=== PATIENT | male | born 1980 | race Caucasian/White ===

== ENCOUNTER 2023-11-18 17:30 | Inpatient (IN) ==
--- NOTE | 2023-11-18 17:53 | ED Physician Documentation ---
History of Present Illness - Stated complaint Stated Complaint: DIZZY/SOA - Chief complaint Chief Complaint: General - History obtained from History obtained from: Patient - History of Present Illness Pain level max: 0 Pain level now: 0 - Additonal information Additional information: Patient is a 43-year-old male who presents to the emergency department lightheadedness and dizziness ongoing for several months. He states he occasionally feels short of air as well. He states that he originally got sick back in July of this year. Cough and congestion. He states since that time he has felt tired and fatigues easily. Worse with standing, worse with walking. No chest pain. Does not smoke. Does not use alcohol. Has been taking Motrin. No blood in the stool that he has noticed. Has not had a colonoscopy. Does not take any medications at home. Is otherwise healthy. He states that when he got home from work today his mother noticed that he looked pale. Patient states that he does take Motrin on a regular basis. He states that he had been having discomfort from "indigestion". 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 Has not had a blood transfusion in the past or had anemia in the past. Review of Systems Constitutional: denies: Fever, Chills Nose: denies: Rhinorrhea / runny nose, Congestion Respiratory: denies: Cough GI: denies: Vomiting, Diarrhea Skin: denies: Rash Musculoskeletal: denies: Neck pain, Back pain Neurologic: denies: Headache PD PAST MEDICAL HISTORY - Past Medical History Past Medical History: No - Past Surgical History Past Surgical History: No - Present Medications Home Medications: Ambulatory Orders Medication Instructions Recorded Confirmed No Known Home Medications 11/18/23 11/18/23 - Allergies Allergies/Adverse Reactions: Allergies Allergy/AdvReac Type Severity Reaction Status Date / Time No Known Drug Allergies Allergy Verified 11/18/23 18:20 - Living Situation Living Situation: reports: With family Living Arrangement: reports: At home - Social History Does the pt smoke?: No Does the pt drink ETOH?: No Does the pt have substance abuse?: No - Family History Family history: reports: Non contributory PD ED PE NORMAL - Vitals Vital signs reviewed: Yes - General General: Alert and oriented X 3, No acute distress, Other (Pale appearing) - HEENT HEENT: PERRL, Moist mucous membranes, Other (Pallor to the inner lower eyelids) - Neck Neck: Supple, no meningeal sign - Cardiac Cardiac: RRR, Strong equal pulses - Respiratory Respiratory: No respiratory distress, Clear bilaterally - Abdomen Abdomen: Soft, Non tender, Non distended - Back Back: No CVA TTP, No spinal TTP - Derm Derm: Warm and dry - Extremities Extremities: No edema, No calf tenderness / cord - Neuro Neuro: Alert and oriented X 3 - Psych Psych: Normal mood, Normal affect Results - Vitals Vitals: Vital Signs - 24 hr 11/18/23 11/18/23 11/18/23 17:40 17:53 18:27 Temperature 37.5 C Heart Rate 107 H 102 H 96 Heart Rate [ Apical] Respiratory 16 14 Rate Blood Pressure 155/79 H 159/92 H 126/57 L Blood Pressure [Right Brachial artery] O2 Saturation 100 98 97 If not protocol : Oxygen Flow, liters/minute 11/18/23 11/18/23 18:30 19:06 Temperature 37.4 C Heart Rate 95 Heart Rate [ 91 Apical] Respiratory 17 20 Rate Blood Pressure 126/57 L Blood Pressure 123/61 [Right Brachial artery] O2 Saturation 90 L 100 If not protocol 0 : Oxygen Flow, liters/minute Oxygen O2 Source Room air - EKG (time done) 1751 EKG releavant findings:: EKG personally interpreted by author of this note. Relevant findings are: Rate: Rate (enter#) (100) Rhythm: Sinus tachycardia [place]: Normal Intervals: Normal ND QRS: Normal Ischemia: Other (Mild ST depression, nonspecific V3 through V6.) - Labs Labs: Laboratory Tests 11/18/23 11/18/23 11/18/23 18:00 18:00 18:00 WBC 5.3 RBC 2.00 L Hgb 3.1 L* Hct 12.5 L* MCV 62.5 L MCH 15.5 L MCHC 24.8 L RDW 18.6 H Plt Count 310 MPV 11.2 Neut # (Auto) 3.4 Lymph # (Auto) 1.5 [place] # (Auto) 0.3 Eos # (Auto) 0.2 Baso # (Auto) 0.0 Absolute Nucleated RBC 0.00 Nucleated RBC % 0.0 Manual Slide Review Indicated Platelet Estimate NORMAL (130-450,000) Platelet Morphology 1+ LARGE PLATELETS RBC Morph Micro Appear 1+ TEARDROP CELLS PT 13.0 H INR 1.2 APTT 31.4 Sodium Potassium Chloride Carbon Dioxide Anion Gap BUN Creatinine Estimated GFR (MDRD) Glucose Calcium Iron TIBC % Saturation Transferrin Total Bilirubin AST ALT Alkaline Phosphatase Total Protein Albumin Globulin Albumin/Globulin Ratio Lipase Ethyl Alcohol Blood Type O POSITIVE Blood Type Recheck Antibody Screen NEGATIVE Crossmatch IS Only See Detail 11/18/23 11/18/23 18:00 18:25 WBC RBC Hgb Hct MCV MCH MCHC RDW Plt Count MPV Neut # (Auto) Lymph # (Auto) [place] # (Auto) Eos # (Auto) Baso # (Auto) Absolute Nucleated RBC Nucleated RBC % Manual Slide Review Platelet Estimate Platelet Morphology RBC Morph Micro Appear PT INR APTT Sodium 136 Potassium 3.7 Chloride 107 Carbon Dioxide 22 Anion Gap 7.0 BUN 21 H Creatinine 1.2 Estimated GFR (MDRD) 65 L Glucose 105 H Calcium 9.2 Iron < 10 L TIBC 503 H % Saturation TNP Transferrin 359 Total Bilirubin 0.4 AST 8 L ALT 8 L Alkaline Phosphatase 42 Total Protein 6.0 L Albumin 3.9 Globulin 2.1 Albumin/Globulin Ratio 1.9 Lipase 63 Ethyl Alcohol < 10.0 Blood Type Blood Type Recheck O POSITIVE Antibody Screen Crossmatch IS Only PD Medical Decision Making - ED course Complexity details: reviewed results, re-evaluated patient, considered differential, d/w patient, d/w content management consultant ED course: 43-year-old male with significant anemia, hemoglobin of 3.1. Had been having epigastric abdominal discomfort intermittently over the past several months, none now. He has been taking a significant amount of Motrin for this. Likely causing gastritis/ulcer and a slow bleed. Iron level is less than 10. Blood transfusion was ordered and started. Protonix was given as well. Discussed the case with Dr. Paniagua, general surgery who will consult on the patient in the morning and plan for endoscopy. Discussed the case with the hospitalist, Dr. Diehl who accepts. This document was made in part using voice recognition software. While efforts are made to proofread this document, sound alike and grammatical errors may occur. Departure - Departure Disposition: [facility] DC/Xfer Clinical Impression: Anemia Qualifiers: Anemia type: iron deficiency Iron deficiency anemia type: chronic blood loss Qualified Code(s): D50.0 - Iron deficiency anemia secondary to blood loss (chronic) Iron deficiency anemia Qualifiers: Iron deficiency anemia type: unspecified iron deficiency Qualified Code(s): D50.9 - Iron deficiency anemia, unspecified GERD (gastroesophageal reflux disease) Qualifiers: Esophagitis presence: esophagitis presence not specified Qualified Code(s): K21.9 - Gastro-esophageal reflux disease without esophagitis Condition: Stable Discharge Date/Time: 11/18/23 19:45
[2023-11-18 18:20] LABS: BASOPHILS % (AUTO) 0.2 %; EOSINOPHILS # (AUTO) 0.2 10^3/uL (0.0-0.7); EOSINOPHILS % (AUTO) 2.8 %; LYMPHOCYTES # (AUTO) 1.5 10^3/uL (1.5-3.5); LYMPHOCYTES % (AUTO) 27.2 %; MEAN CORPUSCULAR HEMOGLOBIN 15.5 pg (27.0-31.0); MEAN CORPUSCULAR HGB CONC 24.8 g/dL (32.0-36.0); MEAN CORPUSCULAR VOLUME 62.5 fL (80.0-94.0); MEAN PLATELET VOLUME 11.2 fL (7.4-11.4); MONOCYTES # (AUTO) 0.3 10^3/uL (0.0-1.0); MONOCYTES % (AUTO) 5.1 %; NEUTROPHILS # (AUTO) 3.4 10^3/uL (1.5-6.6); NEUTROPHILS % (AUTO) 63.8 %; PLT - PLATELET COUNT 310 10^3/uL (130-450); RED CELL DISTRIBUTION WIDTH 18.6 % (12.0-15.0); WHITE BLOOD COUNT 5.3 x10^3/uL (4.8-10.8)
[2023-11-18 18:21] LABS: PARTIAL THROMBOPLASTIN TIME 31.4 secs (24.9-33.3)
[2023-11-18 18:24] LABS: ALBUMIN 3.9 g/dL (3.2-5.5); ALBUMIN/GLOBULIN RATIO 1.9 (1.0-2.2); ALKALINE PHOSPHATASE 42 IU/L (42-121); ALT ALANINE AMINOTRANSFERASE 8 IU/L (10-60); AST ASPARTATE AMINOTRANSFERASE 8 IU/L (10-42); BILIRUBIN,TOTAL 0.4 mg/dL (0.2-1.0); BUN - BLOOD UREA NITROGEN 21 mg/dL (6-20); CALCIUM 9.2 mg/dL (8.5-10.3); CARBON DIOXIDE - CO2 22 mmol/L (21-32); CHLORIDE 107 mmol/L (101-111); CREATININE 1.2 mg/dL (0.6-1.3); ETOH - ETHANOL < 10.0 mg/dL; GFR - MDRD 65 (>89); GLUCOSE 105 mg/dL (74-104); IRON < 10 ug/dL (50-212); LIPASE 63 U/L (11-82); POTASSIUM 3.7 mmol/L (3.5-4.5); SODIUM 136 mmol/L (135-145); TOTAL IRON BINDING CAPACITY 503 ug/dL (250-450); TRANSFERRIN 359 mg/dL (203-362)
[2023-11-18 18:25] LABS: INR 1.2 (0.8-1.2)
[2023-11-18 18:29] LABS: HGB - HEMOGLOBIN 3.1 g/dL (14.0-18.0)
[2023-11-18 18:30] LABS: HCT - HEMATOCRIT 12.5 % (42.0-52.0); SLIDE REVIEW? Indicated
[2023-11-18 18:42] LABS: PLATELET ESTIMATE, MANUAL NORMAL (130-450,000) (NORMAL); PLATELET MORPHOLOGY 1+ LARGE PLATELETS (NORMAL)
[2023-11-18] MEDS: PANTOPRAZOLE 40 MG VIAL IVP STA (18:56)
[2023-11-18] MEDS ORDERED: ACETAMINOPHEN 325 MG TABLET PO PRN (19:11)
[2023-11-18] MEDS ORDERED: ONDANSETRON 4 MG/2 ML VIAL IVP PRN (19:11)
[2023-11-18] MEDS ORDERED: SODIUM CHLORIDE FLUSH 0.9% 10 ML SYRINGE IVP PRN (19:11)
--- NOTE | 2023-11-18 19:38 | HISTORY & PHYSICAL EXAMINATION ---
Chief Complaint - Chief Complaint Chief Complaint: fatigue. History of Present Illness - Admitted From Admitted From:: Home/ED - History Obtained From History obtained from: patient/ED physician Exam Limitations: none - History of Present Illness HPI Comment/Other: MR. Diaz is a pleasant 43yoM that presented to the ED for evaluation of fatigue. He explained that he first noticed symptoms of mild fatigue a few months prior. This was associated with exertional dyspnea and occasional dizziness. He denied any chest pain. he did have some mild epigastric pain that was not different from his usual indigestion/GERD pain. Over the past several weeks his symptoms have worsened. In the ED workup demonstrated a hemoglobin of 3. Adyt explained that he had not seen any blood in his urine or stool. He stated that he does not have a history of anemia.He admitted to taking NSAIDS regularly for muscle pain. During my face to face, patient was resting comfortably in no distress. Vitals were stable. Patient will be admitted for further GI evaluation, surgery consultation,and blood transfusion. Plan of care was discussed, including the usage of tele-medicine for the this visit and patient provided verbal consent. Real time tele-health tools were utilized during this visit including telephone and live-video. History - Past Medical History GI: reports: GERD - Family & Social History Living arrangement: At home Living Situation: With family Meds/Allgy - Home Medications Home Medications: Ambulatory Orders Medication Instructions Recorded Confirmed No Known Home Medications 11/18/23 11/18/23 - Allergies Allergies/Adverse Reactions: Allergies Allergy/AdvReac Type Severity Reaction Status Date / Time No Known Drug Allergies Allergy Verified 11/18/23 18:20 Review of Systems - Constitutional Constitutional: reports: Fatigue, Weakness - Cardiovascular Cariovascular: reports: Lightheadedness, Exertional dyspnea, Decr. exercise tolerance. denies: Palpitations, Chest pain - Gastrointestinal Gastrointestinal: reports: Abdominal pain. denies: Change in bowel habits, Rectal bleeding, Black stools, Bloody stools, Coffee grounds emesis - Genitourinary Genitourinary: reports: Frequency, Nocturia - All Other Systems All Other Systems: reports: Reviewed and negative Exam - Vital Signs Reviewed Vital Signs: Yes Vital Signs: Vital Signs x48h Temp Pulse Pulse Resp BP BP Pulse Ox 11/18/23 19:21 36.9 C 91 21 125/64 100 11/18/23 19:06 37.4 C 91 20 123/61 100 11/18/23 18:30 95 17 126/57 L 90 L 11/18/23 18:27 96 14 126/57 L 97 11/18/23 17:53 102 H 159/92 H 98 11/18/23 17:40 37.5 C 107 H 16 155/79 H 100 O2 Flow Rate 11/18/23 19:21 0 11/18/23 19:06 0 11/18/23 18:30 11/18/23 18:27 11/18/23 17:53 11/18/23 17:40 - Physical Exam General Appearance: positive: No acute distress, Alert Respiratory: positive: No respiratory distress. negative: Chest non-tender, Wheezes Cardiovascular: positive: Regular rate & rhythm, No murmur, No gallop Abdomen: positive: Non-tender, No organomegaly, Nml bowel sounds, No distention Extremities: positive: Non-tender, Full ROM, Nml appearance Neurologic/Psychiatric: positive: Oriented x3, Mood/affect nml Comments/Other: Evaluation via tele-medicine: Physical examination as recorded is based on patient reported information or obtained through peripheral. Conclusion/Plan - Problem List (1) Anemia Conclusion/Plan: chronic blood loss, suspected gastric ulcer vs esophagititis due to NSAID usage -type and screen, transfuse blood: 3 units PRBC pending transfusion -monitor vitals closely with continous telemetry, serial BP and temperature monitoring -iron studies reviewed Qualifiers: Anemia type: iron deficiency Iron deficiency anemia type: chronic blood loss Qualified Code(s): D50.0 - Iron deficiency anemia secondary to blood loss (chronic) (2) GERD (gastroesophageal reflux disease) Conclusion/Plan: -protonix IV continued -GI evlaution: EGD,colonoscopy pending - Lab Results Fish Bones: 11/18/23 18:00 11/18/23 18:00 Core Measures - Anticipated LOS I expect patient to be DC'd or transferred within 96 hours.: Yes Telemedicine Consult Details - Provider Location & Consult Time Telemedicine consultation conducted via videoconferencing?: Yes
[2023-11-19] MEDS ORDERED: SODIUM CHLORIDE 0.9% 500 ML IV ONE ×2 (00:15→05:31)
[2023-11-19] MEDS: SODIUM CHLORIDE FLUSH 0.9% 10 ML SYRINGE IVP SCH (00:38)
[2023-11-19 04:55] LABS: MEAN CORPUSCULAR HEMOGLOBIN 21.3 pg (27.0-31.0); MEAN CORPUSCULAR HGB CONC 29.2 g/dL (32.0-36.0); MEAN PLATELET VOLUME 11.2 fL (7.4-11.4); RED BLOOD COUNT 2.67 10^6/uL (4.70-6.10); RED CELL DISTRIBUTION WIDTH 26.2 % (12.0-15.0); WHITE BLOOD COUNT 6.3 x10^3/uL (4.8-10.8)
[2023-11-19 05:01] LABS: HCT - HEMATOCRIT 19.5 % (42.0-52.0); HGB - HEMOGLOBIN 5.7 g/dL (14.0-18.0)
[2023-11-19 05:10] LABS: CALCIUM 8.4 mg/dL (8.5-10.3); CREATININE 1.1 mg/dL (0.6-1.3); POTASSIUM 3.7 mmol/L (3.5-4.5)
[2023-11-19] MEDS ORDERED: FUROSEMIDE 20 MG/2 ML VIAL IVP PRN (05:15)
[2023-11-19] MEDS: PANTOPRAZOLE 40 MG VIAL IVP SCH (09:13)
--- NOTE | 2023-11-19 10:33 | ANESTHESIA ---
Pre-Anesthesia VS, & Labs - Diagnosis GI BLEED - Procedure EGD Vital Signs: Temp Pulse Resp BP Pulse Ox O2 Flow Rate 37.1 C 84 20 144/89 H 97 0 11/19/23 08:38 11/19/23 08:38 11/19/23 08:38 11/19/23 08:38 11/19/23 08:38 11/18/23 20:35 Height: 6 ft 1 in Weight (kg): 103.419 kg Body Mass Index: 30.0 BMI Classification: Obese - NPO >8 hours - Lab Results Current Lab Results: Laboratory Tests 11/19/23 09:31: Hgb 6.7 L* 11/19/23 04:13: Sodium 136, Potassium 3.7, Chloride 110, Carbon Dioxide 21, Anion Gap 5.0 L, BUN 16, Creatinine 1.1, Estimated GFR (MDRD) 72 L, Glucose 93, Calcium 8.4 L 11/19/23 04:13: WBC 6.3, RBC 2.67 L, Hgb 5.7 L*, Hct 19.5 L*, MCV 73.0 L, MCH 21.3 L, MCHC 29.2 L, RDW 26.2 H, Plt Count 272, MPV 11.2 11/18/23 20:28: POC Whole Bld Glucose 94 11/18/23 18:25: Blood Type Recheck O POSITIVE 11/18/23 18:00: Sodium 136, Potassium 3.7, Chloride 107, Carbon Dioxide 22, Anion Gap 7.0, BUN 21 H, Creatinine 1.2, Estimated GFR (MDRD) 65 L, Glucose 105 H, Calcium 9.2, Iron < 10 L, TIBC 503 H, % Saturation TNP, Transferrin 359, Total Bilirubin 0.4, AST 8 L, ALT 8 L, Alkaline Phosphatase 42, Total Protein 6.0 L, Albumin 3.9, Globulin 2.1, Albumin/Globulin Ratio 1.9, Lipase 63, Ethyl Alcohol < 10.0 11/18/23 18:00: PT 13.0 H, INR 1.2, APTT 31.4 11/18/23 18:00: WBC 5.3, RBC 2.00 L, Hgb 3.1 L*, Hct 12.5 L*, MCV 62.5 L, MCH 15.5 L, MCHC 24.8 L, RDW 18.6 H, Plt Count 310, MPV 11.2, Neut # (Auto) 3.4, Lymph # (Auto) 1.5, [place] # (Auto) 0.3, Eos # (Auto) 0.2, Baso # (Auto) 0.0, Absolute Nucleated RBC 0.00, Nucleated RBC % 0.0, Manual Slide Review Indicated, Platelet Estimate NORMAL (130-450,000), Platelet Morphology 1+ LARGE PLATELETS, RBC Morph Micro Appear 1+ TEARDROP CELLS 11/18/23 18:00: Blood Type O POSITIVE, Antibody Screen NEGATIVE, Crossmatch IS Only See Detail Lab results reviewed: Yes Fish Bones: 11/19/23 09:31 11/19/23 04:13 Home Medications and Allergies Home Medications: Ambulatory Orders No Known Home Medications 11/18/23 Active Medications Acetaminophen (Acetaminophen 325 Mg Tablet) 650 mg PO Q4HR PRN PRN Reason: Pain 1 to 4, or Fever Ondansetron HCl (Ondansetron 4 Mg/2 Ml Vial) 4 mg IVP Q6HR PRN PRN Reason: Nausea / Vomiting Pantoprazole Sodium (Pantoprazole 40 Mg Vial) 40 mg IVP QDAC [facility] Last Admin: 11/19/23 09:13 Dose: 40 mg Sodium Chloride (Sodium Chloride Flush 0.9% 10 Ml Syringe) 10 ml IVP PRN PRN PRN Reason: NEEDED PER PROVIDER ORDERS Sodium Chloride (Sodium Chloride Flush 0.9% 10 Ml Syringe) 10 ml IVP 0100,0900,1700 [facility] Last Admin: 11/19/23 09:13 Dose: 10 ml No Known Home Medications 11/18/23 Allergies/Adverse Reactions: Allergies Allergy/AdvReac Type Severity Reaction Status Date / Time No Known Drug Allergies Allergy Verified 11/18/23 18:20 Anes History & Medical History - Anesthetic History Anesthesia Complications: reports: No previous complications Family history of Anesthesia Complications: Denies - Medical History Cardiovascular: reports: None (NO CP; HAD MILD ST ELEVATION ON ARRIVAL W HGB OF 3.1) Pulmonary: reports: Shortness of breath Gastrointestinal: reports: GERD Urinary: reports: Frequency Neuro: reports: None Musculoskeletal: reports: None, Osteoporosis Endocrine/Autoimmune: reports: None Blood Disorders: reports: None Skin: reports: None Smoking Status: Former smoker Psychosocial: reports: No issues indicated Results - EKG Results EKG Comparison: Reviewed EKG Exam General: Alert, Oriented x3 Dental: WNL Mouth Openin Fingerbreadth Neck Mobility: Normal Mallampati classification: II Thyromental Distance: 4-6 cm Respiratory: Lungs clear Cardiovascular: Regular rate Plan Anesthesia Type: Total IV Consent for Procedure(s) Verified and Reviewed: Yes Code Status: Attempt Resuscitation ASA classification: 2-Mild systemic disease Is this case an emergency?: No
--- NOTE | 2023-11-19 11:33 | PROVIDER PROGRESS NOTE ---
Subjective - Prog Note Date Prog Note Date: 11/19/23 Prog Note Time: 10:57 - Subjective Pt reports feeling: Improved Subjective: Feels much better this morning. The nurses state that his color looks better. He states that he came into the hospital when his fatigue turned to exhaustion. It was at this point his hemoglobin was 3. Current Medications - Current Medications Current Medications: Medications Acetaminophen (Acetaminophen 325 Mg Tablet) 650 mg PO Q4HR PRN PRN Reason: Pain 1 to 4, or Fever Ondansetron HCl (Ondansetron 4 Mg/2 Ml Vial) 4 mg IVP Q6HR PRN PRN Reason: Nausea / Vomiting Pantoprazole Sodium (Pantoprazole 40 Mg Vial) 40 mg IVP QDAC [facility] Last Admin: 11/19/23 09:13 Dose: 40 mg Has recieved 4 units of PRBCs since admit. Objective - Vital Signs/Intake & Output Vital Signs: Vital Signs x48h Temp Pulse Pulse Pulse Resp BP Pulse Ox 11/19/23 08:38 37.1 C 84 20 144/89 H 97 11/19/23 07:26 36.6 C 78 18 145/89 H 97 11/19/23 06:15 37 C 77 20 146/82 H 95 11/19/23 05:57 36.7 C 78 20 134/83 H 96 11/19/23 04:22 37.3 C 84 14 133/83 H 97 11/19/23 03:08 36.8 C 83 18 139/82 H 94 Intake & Output: Intake & Output 11/16/23 11/17/23 11/18/23 11/19/23 23:59 23:59 23:59 23:59 Intake Total 300 1077 Output Total 250 1050 Balance 50 27 - Objective General Appearance: positive: No acute distress ENT: positive: ENT inspection nml Neck: positive: Nml inspection Respiratory: positive: Chest non-tender, No respiratory distress, Breath sounds nml Cardiovascular: positive: Regular rate & rhythm Abdomen: positive: Non-tender, No distention Back: positive: Nml inspection Skin: positive: Color nml Extremities: positive: Non-tender, No pedal edema Neurologic/Psychiatric: positive: Oriented x3 - Lab Results Fish Bones: 11/19/23 09:31 11/19/23 04:13 Other Labs: Lab Results x24hrs 11/19/23 11/19/23 11/19/23 Range/Units 09:31 04:13 04:13 WBC 6.3 (4.8-10.8) x10^3/uL RBC 2.67 L (4.70-6.10) 10^6/uL Hgb 6.7 L* 5.7 L* (14.0-18.0) g/dL Hct 19.5 L* (42.0-52.0) % MCV 73.0 L (80.0-94.0) fL MCH 21.3 L (27.0-31.0) pg MCHC 29.2 L (32.0-36.0) g/dL RDW 26.2 H (12.0-15.0) % Plt Count 272 (130-450) 10^3/uL MPV 11.2 (7.4-11.4) fL Neut # (Auto) (1.5-6.6) 10^3/uL Lymph # (Auto) (1.5-3.5) 10^3/uL [place] # (Auto) (0.0-1.0) 10^3/uL Eos # (Auto) (0.0-0.7) 10^3/uL Baso # (Auto) (0.0-0.1) 10^3/uL Absolute Nucleated RBC x10^3/uL Nucleated RBC % /100WBC Manual Slide Review Platelet Estimate (NORMAL) Platelet Morphology (NORMAL) RBC Morph Micro Appear (NORMAL) PT (9.9-12.6) secs INR (0.8-1.2) APTT (24.9-33.3) secs Sodium 136 (135-145) mmol/L Potassium 3.7 (3.5-4.5) mmol/L Chloride 110 (101-111) mmol/L Carbon Dioxide 21 (21-32) mmol/L Anion Gap 5.0 L (6-13) BUN 16 (6-20) mg/dL Creatinine 1.1 (0.6-1.3) mg/dL Estimated GFR (MDRD) 72 L (>89) Glucose 93 (74-104) mg/dL POC Whole Bld Glucose (70 - 100) mg/dL Calcium 8.4 L (8.5-10.3) mg/dL Iron (50-212) ug/dL TIBC (250-450) ug/dL % Saturation Transferrin (203-362) mg/dL Total Bilirubin (0.2-1.0) mg/dL AST (10-42) IU/L ALT (10-60) IU/L Alkaline Phosphatase (42-121) IU/L Total Protein (6.4-8.9) g/dL Albumin (3.2-5.5) g/dL Globulin (2.1-4.2) g/dL Albumin/Globulin Ratio (1.0-2.2) Lipase (11-82) U/L Ethyl Alcohol mg/dL Blood Type Blood Type Recheck Antibody Screen Crossmatch IS Only 11/18/23 11/18/23 11/18/23 Range/Units 20:28 18:25 18:00 WBC (4.8-10.8) x10^3/uL RBC (4.70-6.10) 10^6/uL Hgb (14.0-18.0) g/dL Hct (42.0-52.0) % MCV (80.0-94.0) fL MCH (27.0-31.0) pg MCHC (32.0-36.0) g/dL RDW (12.0-15.0) % Plt Count (130-450) 10^3/uL MPV (7.4-11.4) fL Neut # (Auto) (1.5-6.6) 10^3/uL Lymph # (Auto) (1.5-3.5) 10^3/uL [place] # (Auto) (0.0-1.0) 10^3/uL Eos # (Auto) (0.0-0.7) 10^3/uL Baso # (Auto) (0.0-0.1) 10^3/uL Absolute Nucleated RBC x10^3/uL Nucleated RBC % /100WBC Manual Slide Review Platelet Estimate (NORMAL) Platelet Morphology (NORMAL) RBC Morph Micro Appear (NORMAL) PT (9.9-12.6) secs INR (0.8-1.2) APTT (24.9-33.3) secs Sodium 136 (135-145) mmol/L Potassium 3.7 (3.5-4.5) mmol/L Chloride 107 (101-111) mmol/L Carbon Dioxide 22 (21-32) mmol/L Anion Gap 7.0 (6-13) BUN 21 H (6-20) mg/dL Creatinine 1.2 (0.6-1.3) mg/dL Estimated GFR (MDRD) 65 L (>89) Glucose 105 H (74-104) mg/dL POC Whole Bld Glucose 94 (70 - 100) mg/dL Calcium 9.2 (8.5-10.3) mg/dL Iron < 10 L (50-212) ug/dL TIBC 503 H (250-450) ug/dL % Saturation TNP Transferrin 359 (203-362) mg/dL Total Bilirubin 0.4 (0.2-1.0) mg/dL AST 8 L (10-42) IU/L ALT 8 L (10-60) IU/L Alkaline Phosphatase 42 (42-121) IU/L Total Protein 6.0 L (6.4-8.9) g/dL Albumin 3.9 (3.2-5.5) g/dL Globulin 2.1 (2.1-4.2) g/dL Albumin/Globulin Ratio 1.9 (1.0-2.2) Lipase 63 (11-82) U/L Ethyl Alcohol < 10.0 mg/dL Blood Type Blood Type Recheck O POSITIVE Antibody Screen Crossmatch IS Only 11/18/23 11/18/23 11/18/23 Range/Units 18:00 18:00 18:00 WBC 5.3 (4.8-10.8) x10^3/uL RBC 2.00 L (4.70-6.10) 10^6/uL Hgb 3.1 L* (14.0-18.0) g/dL Hct 12.5 L* (42.0-52.0) % MCV 62.5 L (80.0-94.0) fL MCH 15.5 L (27.0-31.0) pg MCHC 24.8 L (32.0-36.0) g/dL RDW 18.6 H (12.0-15.0) % Plt Count 310 (130-450) 10^3/uL MPV 11.2 (7.4-11.4) fL Neut # (Auto) 3.4 (1.5-6.6) 10^3/uL Lymph # (Auto) 1.5 (1.5-3.5) 10^3/uL [place] # (Auto) 0.3 (0.0-1.0) 10^3/uL Eos # (Auto) 0.2 (0.0-0.7) 10^3/uL Baso # (Auto) 0.0 (0.0-0.1) 10^3/uL Absolute Nucleated RBC 0.00 x10^3/uL Nucleated RBC % 0.0 /100WBC Manual Slide Review Indicated Platelet Estimate NORMAL (130-450,000) (NORMAL) Platelet Morphology 1+ LARGE PLATELETS (NORMAL) RBC Morph Micro Appear 1+ TEARDROP CELLS (NORMAL) PT 13.0 H (9.9-12.6) secs INR 1.2 (0.8-1.2) APTT 31.4 (24.9-33.3) secs Sodium (135-145) mmol/L Potassium (3.5-4.5) mmol/L Chloride (101-111) mmol/L Carbon Dioxide (21-32) mmol/L Anion Gap (6-13) BUN (6-20) mg/dL Creatinine (0.6-1.3) mg/dL Estimated GFR (MDRD) (>89) Glucose (74-104) mg/dL POC Whole Bld Glucose (70 - 100) mg/dL Calcium (8.5-10.3) mg/dL Iron (50-212) ug/dL TIBC (250-450) ug/dL % Saturation Transferrin (203-362) mg/dL Total Bilirubin (0.2-1.0) mg/dL AST (10-42) IU/L ALT (10-60) IU/L Alkaline Phosphatase (42-121) IU/L Total Protein (6.4-8.9) g/dL Albumin (3.2-5.5) g/dL Globulin (2.1-4.2) g/dL Albumin/Globulin Ratio (1.0-2.2) Lipase (11-82) U/L Ethyl Alcohol mg/dL Blood Type O POSITIVE Blood Type Recheck Antibody Screen NEGATIVE Crossmatch IS Only See Detail ABX Reporting Has patient been on IV antibiotics over the past 48 hours?: No Assessment/Plan - Problem List (1) Anemia Impression: Most likely related to chronic blood loss. He has daily GERD symptoms which she has been treating with [id number] medications. He has been becoming more and more fatigued. He states that recently he took some ibuprofen when he was particularly exhausted and subsequently felt better and then for the last 6 weeks has been taking ibuprofen because he thought maybe it would help him feel better. This has likely been exacerbating his probable upper GI bleed. While he recalls a long history of GERD symptomatology he denies any previous history of GI bleed. He has not recognized melanotic stools His iron level is less than 10. We have ordered iron infusion for him. He has gotten 4 units of packed red blood cells today. His hemoglobin is rising appropriately. Laboratory Tests 11/18/23 11/19/23 11/19/23 18:00 04:13 09:31 Hgb 3.1 L* 5.7 L* 6.7 L* (2) GERD (gastroesophageal reflux disease) Impression: With regards to his GERD. This is ongoing for him. He has been on and off of proton pump inhibitors and has also treated his symptoms with things like Rolaids and Tums. Unknown H. pylori status. Dr. Rey is planning to do an EGD today, I would imagine that sample for H. pylori would be part of this process. I will certainly plan to discharge him home with PPIs twice daily. Qualifiers: Esophagitis presence: esophagitis presence not specified Qualified Code(s): K21.9 - Gastro-esophageal reflux disease without esophagitis
[2023-11-19] MEDS: IRON DEXTRAN 1,000 MG in SODIUM CHLORIDE 0.9% 250 ML IV ONE (11:47)
--- NOTE | 2023-11-19 11:53 | PHARMACY PROGRESS NOTE ---
- Best Possible Medication History Admit Date and Time: 11/18/231910 Processed by: Pharmacy Medications reviewed in ED?: Yes Medication History completed: Yes Patient Interview: Completed Secondary Source(s): Pharmacy records, Insurance records As the person ultimately responsible for medication therapy, providers are able to order a medication from an existing home medication list in [facility] via the "Reconcile Routine" prior to Confirmation of that medication by manager sales support. Such practice is discouraged except when the physician, in their clinical judgment, deems that a medical need exists for a medication without regard to previous use.
--- NOTE | 2023-11-19 12:55 | CONSULTATION NOTE ---
Referring Provider Name of Referring Provider:: Medicine Consult Date: 11/19/23 Chief Complaint - Chief Complaint Chief Complaint: exhaustion, SOA on exertion History of Present Illness - Admitted From Admitted From:: ED - History Obtained From Records Reviewed: yes History obtained from: ED provider, chart, patient - History of Present Illness HPI Comment/Other: Patient reports worsening fatigue that progressed to exhaustion over the last couple of months, associated with SOA with activity. He denies abdominal pain, blood in his stool or dark stools. He does take NSAID medications for back pain on a regular basis. He had previously been on an acid reducing medication, but stopped taking it about two months ago. He has "indigestion" on a near daily basis and treats this with gaviscon. He denies alcohol use. He is not taking any blood thinning medications. No prior upper or lower endoscopy. No family history of colon cancer. 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) - Substance History Use: Uses substance without health or social issues: NONE Meds/Allgy - Home Medications Home Medications: Ambulatory Orders Medication Instructions Recorded Confirmed Famotidine [Pepcid] 20 mg PO UD PRN 11/19/23 11/19/23 - Allergies Allergies/Adverse Reactions: Allergies Allergy/AdvReac Type Severity Reaction Status Date / Time No Known Drug Allergies Allergy Verified 11/18/23 18:20 Review of Systems - Constitutional Constitutional: reports: Other (A complete 10 point review of symptoms is otherwise negative except for that noted in HPI and PMH.) Exam - Vital Signs Vital Signs: Vital Signs x48h Temp Pulse Pulse Resp BP Pulse Ox 11/19/23 11:47 36.7 C 74 18 134/79 H 96 11/19/23 08:38 37.1 C 84 20 144/89 H 97 11/19/23 07:26 36.6 C 78 18 145/89 H 97 11/19/23 06:15 37 C 77 20 146/82 H 95 09/24/24 05:57 36.7 C 78 20 134/83 H 96 - Physical Exam Comments/Other: GEN: No acute distress, appears stated age, alert and oriented, pale appearing HEENT: NCAT, MMM, EOMI NEURO: CN II-XII grossly intact, no obvious focal deficits CV: RRR PULM: Nonlabored, on room air ABD: soft, non tender, no rebound or guarding, specifically no abdominal pain in the epigastric area or lower abdomen CIRCULATORY: no clubbing, cyanosis, or edema SKIN: no lesions appreciated LYMPH: no obvious lymphadenopathy MSK: 4/4 strength in all extremities PSYCH: Affect is appropriate Conclusion and Plan - Lab Results Laboratory Results 11/19/23 09:31: Hgb 6.7 L* 11/19/23 04:13: Sodium 136, Potassium 3.7, Chloride 110, Carbon Dioxide 21, Anion Gap 5.0 L, BUN 16, Creatinine 1.1, Estimated GFR (MDRD) 72 L, Glucose 93, Calcium 8.4 L 11/19/23 04:13: WBC 6.3, RBC 2.67 L, Hgb 5.7 L*, Hct 19.5 L*, MCV 73.0 L, MCH 21.3 L, MCHC 29.2 L, RDW 26.2 H, Plt Count 272, MPV 11.2 11/18/23 20:28: POC Whole Bld Glucose 94 11/18/23 18:25: Blood Type Recheck O POSITIVE 11/18/23 18:00: Sodium 136, Potassium 3.7, Chloride 107, Carbon Dioxide 22, Anion Gap 7.0, BUN 21 H, Creatinine 1.2, Estimated GFR (MDRD) 65 L, Glucose 105 H, Calcium 9.2, Iron < 10 L, TIBC 503 H, % Saturation TNP, Transferrin 359, Total Bilirubin 0.4, AST 8 L, ALT 8 L, Alkaline Phosphatase 42, Total Protein 6.0 L, Albumin 3.9, Globulin 2.1, Albumin/Globulin Ratio 1.9, Lipase 63, Ethyl Alcohol < 10.0 11/18/23 18:00: PT 13.0 H, INR 1.2, APTT 31.4 11/18/23 18:00: WBC 5.3, RBC 2.00 L, Hgb 3.1 L*, Hct 12.5 L*, MCV 62.5 L, MCH 15.5 L, MCHC 24.8 L, RDW 18.6 H, Plt Count 310, MPV 11.2, Neut # (Auto) 3.4, Lymph # (Auto) 1.5, [place] # (Auto) 0.3, Eos # (Auto) 0.2, Baso # (Auto) 0.0, Absolute Nucleated RBC 0.00, Nucleated RBC % 0.0, Manual Slide Review Indicated, Platelet Estimate NORMAL (130-450,000), Platelet Morphology 1+ LARGE PLATELETS, RBC Morph Micro Appear 1+ TEARDROP CELLS 11/18/23 18:00: Blood Type O POSITIVE, Antibody Screen NEGATIVE, Crossmatch IS Only See Detail - Consultation Note Consultation Note: 43-year-old male with: 1. Severe anemia and presumed upper GI bleeding Patient is status post drug transfusion for an initial hemoglobin of 3, hemoglobin is up to 6.7 this morning. The patient was hemodynamically stable without hypotension or tachycardia at the time of presentation indicating a chronic course as the patient is fairly well compensated I recommended EGD to rule out gastritis, peptic ulcer disease, esophagitis as the underlying cause of his low hemoglobin. We discussed the risks, benefits, and alternatives of this procedure including bleeding and perforation. The patient voiced understanding, his questions were answered, and he wished to proceed. A consent was signed by the patient. The patient is also due for his first colonoscopy. Assuming that his hemoglobin is stable, this could be done as an outpatient. I recommend the patient avoid NSAID medications, and continue on a PPI Further recommendations pending the results of upper endoscopy later today Thank you for consulting me in the care of this patient. I will continue to follow closely.
[2023-11-19] MEDS ORDERED: PROPOFOL 200 MG/20 ML VIAL IVP ONE ×2 (15:39→16:07)
[2023-11-19] MEDS ORDERED: LIDOCAINE-MPF 2% 5 ML VIAL ONE (15:39)
[2023-11-19] MEDS ORDERED: MIDAZOLAM 2 MG/2 ML VIAL ONE (15:39)
--- NOTE | 2023-11-19 17:16 | ANESTHESIA POST OP EVALUATION ---
Anesthesia Post Eval - Post Anesthesia Eval Vitals: Last Vital Signs Temp 36.8 C 11/19/23 16:44 Pulse 80 11/19/23 16:44 Resp 24 11/19/23 16:44 BP 112/67 11/19/23 16:44 Pulse Ox 98 11/19/23 16:44 O2 Flow Rate 8 11/19/23 16:26 CV Function Including HR & BP: Stable Pain Control: Satisfactory Nausea & Vomiting: Negative Mental Status: Baseline Respiratory Status: Airway Patent Hydration Status: Satisfactory Anesthesia Complications: None
--- NOTE | 2023-11-19 17:54 | Discharge Summary ---
Discharge Plan Problem Reviewed?: Yes Diet: Regular Activity Restrictions: No Restrictions Shower Restrictions: No Driving Restrictions: No No Smoking: If you smoke, Please STOP! Call for help. Disposition: 01 Home, Self Care Condition: Stable Prescriptions: Iron Ps Complex/B12/Folic Acid [Ferrex 150 Forte Capsule] 1 each PO DAILYWM #90 cap Pantoprazole Sodium [Protonix] 40 mg PO DAILY #90 tab Instruction Topics: Anemia, GERD, GERD Lifestyle Changes, GERD Meds Health Concerns: She you came into the hospital because you felt absolutely terrible. It is now obvious that you felt terrible because you are very very anemic. This is because you are losing blood from your GI tract. I think the combination of ibuprofen and reflux is what made you anemic. You had an endoscopy by Dr. Paniagua. She has some biopsies that she wants to follow-up with you in the office. Her office will call you to review the results of these biopsies. Please look carefully at the report that she gave you and follow the instructions with regards to diet. You need to avoid acidic foods, you need to wait to go to bed for 3 to 4 hours after eating. You may want to decrease your soda, caffeine, and coffee intake. All of these things can worsen your reflux. You need to start on a medication called a proton pump inhibitor. I have prescribed Protonix for you. I have sent this to the pharmacy in [place]. You need to take this medication when you get up in the morning on an empty stomach with some water. Wait about 30 minutes to eat. This is the best way for this medication to work. I recommend that you take acid medicine for the rest of your life. You have gotten 4 units of blood since you have been here. While this has helped your anemia some it has not made you all the way better. You need to give your body the building blocks for making new red blood cells. I have prescribed a supplement with iron and B vitamins. It is also an option to take vitamins that have iron included in them. Iron can turn your stools black and it can also cause constipation. I recommend adding a lot of fiber to your diet. If you start to become constipated I recommend using a medication called MiraLAX. You can also take the generic of MiraLAX. I see that you have been seen by the [facility]. I would recommend you become established with a primary care provider Plan of Treatment: Proton pump inhibitor Iron to help you build new red blood cells Change your lifestyle and diet to avoid reflux
[2023-11-20 04:54] VITALS: O2SAT 96
[2023-11-20 05:54] LABS: HCT - HEMATOCRIT 23.5 % (42.0-52.0); HGB - HEMOGLOBIN 7.1 g/dL (14.0-18.0); MEAN CORPUSCULAR HEMOGLOBIN 22.1 pg (27.0-31.0); MEAN CORPUSCULAR HGB CONC 30.2 g/dL (32.0-36.0); MEAN CORPUSCULAR VOLUME 73.2 fL (80.0-94.0); MEAN PLATELET VOLUME 11.6 fL (7.4-11.4); RED BLOOD COUNT 3.21 10^6/uL (4.70-6.10); RED CELL DISTRIBUTION WIDTH 25.2 % (12.0-15.0); WHITE BLOOD COUNT 7.1 x10^3/uL (4.8-10.8)
[2023-11-20 05:59] LABS: CALCIUM 8.9 mg/dL (8.5-10.3); POTASSIUM 3.7 mmol/L (3.5-4.5)
--- NOTE | 2023-11-20 06:42 | PROVIDER PROGRESS NOTE ---
Subjective - General Admit Date: 11/18/23 Procedure Date: 11/19/23 Post Op Days: 1 Procedure Performed: EGD with biopsy - Review of Systems All Other Systems: positive: Reviewed and negative - Other Other Information/Narrative: No pain or nausea this AM. Tolerated sandwich for dinner last night. No questions or concerns. Patient would like to go home. Objective - Patient Data Reviewed Vital Signs: Yes Vital Signs: Vital Signs x48h Temp Pulse Resp BP Pulse Ox 11/20/23 04:50 36.7 C 76 20 133/85 H 96 11/20/23 00:01 36.6 C 80 20 137/86 H 97 Weight: Weight 11/18/23 11/19/23 11/20/23 23:59 23:59 23:59 Weight (kg) 103.419 kg 103.419 kg Intake & Output: Intake and Output Totals x24h 11/18/23 11/19/23 11/20/23 23:59 23:59 23:59 Intake Total 300 1787 Output Total 250 1525 Balance 50 262 - Lab Results Lab Results: 11/20/23 05:11 11/20/23 05:11 Other Lab Results: Lab Results x24hrs 11/20/23 11/20/23 11/19/23 Range/Units 05:11 05:11 16:22 WBC 7.1 (4.8-10.8) x10^3/uL RBC 3.21 L (4.70-6.10) 10^6/uL Hgb 7.1 L 6.6 L* (14.0-18.0) g/dL Hct 23.5 L (42.0-52.0) % MCV 73.2 L (80.0-94.0) fL MCH 22.1 L (27.0-31.0) pg MCHC 30.2 L (32.0-36.0) g/dL RDW 25.2 H (12.0-15.0) % Plt Count 265 (130-450) 10^3/uL MPV 11.6 H (7.4-11.4) fL Sodium 139 (135-145) mmol/L Potassium 3.7 (3.5-4.5) mmol/L Chloride 111 (101-111) mmol/L Carbon Dioxide 22 (21-32) mmol/L Anion Gap 6.0 (6-13) BUN 10 (6-20) mg/dL Creatinine 1.0 (0.6-1.3) mg/dL Estimated GFR (MDRD) 81 L (>89) Glucose 88 (74-104) mg/dL Calcium 8.9 (8.5-10.3) mg/dL Crossmatch IS Only 11/19/23 11/18/23 Range/Units 09:31 18:00 WBC (4.8-10.8) x10^3/uL RBC (4.70-6.10) 10^6/uL Hgb 6.7 L* (14.0-18.0) g/dL Hct (42.0-52.0) % MCV (80.0-94.0) fL MCH (27.0-31.0) pg MCHC (32.0-36.0) g/dL RDW (12.0-15.0) % Plt Count (130-450) 10^3/uL MPV (7.4-11.4) fL Sodium (135-145) mmol/L Potassium (3.5-4.5) mmol/L Chloride (101-111) mmol/L Carbon Dioxide (21-32) mmol/L Anion Gap (6-13) BUN (6-20) mg/dL Creatinine (0.6-1.3) mg/dL Estimated GFR (MDRD) (>89) Glucose (74-104) mg/dL Calcium (8.5-10.3) mg/dL Crossmatch IS Only See Detail - Current Medications Current Medications: Current Medications Generic Name Dose Route Start Last Admin Trade Name Constantinoq PRN Reason Stop Dose Admin Pantoprazole Sodium 40 mg 11/19/23 09:00 11/20/23 06:39 Pantoprazole 40 Mg Vial IVP 40 mg QDAC HARI Administration Sodium Chloride 10 ml 11/19/23 01:00 11/20/23 00:05 Sodium Chloride Flush 0.9% 10 Ml Syringe IVP 10 ml 0100,0900,1700 HARI Administration - Physical Exam Comments/Other: Gen: NAD, alert and oriented CV: RRR Pulm: non labored on RA Abd: soft, non tender Impression/Plan - Problem List Problem List: 43-year-old male with: 1. Severe anemia and esophagitis on EGD (11/18) - pathology pending from EGD Patient is status post pRBC transfusion for an initial hemoglobin of 3, hemoglobin is up to 7 this morning, stable since last night The patient was hemodynamically stable without hypotension or tachycardia at the time of presentation indicating a chronic course as the patient is fairly well compensated I recommended patient adat to regular, continue on PPI, and avoid NSAID medications. The patient is also due for his first colonoscopy. This can be done as an outpatient. Ok to discharge from surgery standpoint if able to tolerate regular diet. I would like the patient to f/u with me in 2 weeks.
[2023-11-20 08:14] VITALS: BP 130/80
--- NOTE | 2023-11-20 10:41 | DISCHARGE SUMMARY ---
Discharge Summary Admit Date: 11/18/23 Discharge Date: 11/20/23 Discharging Provider: Priyank Hutchins NP Primary Care Provider: [facility] Code Status: Attempt Resuscitation Condition at Discharge: Fair Discharge Disposition: 01 Home, Self Care - DIAGNOSES Admission Diagnoses: GERD Symptomatic anemia Discharge Diagnoses with Status of Each Condition: symptomatic anemiaresolved GERDchronic - HPI History of Present Illness: 43-year-old male presented to ED for evaluation of fatigue, exertional dyspnea, occasional dizziness, mild epigastric pain. He was admitted for symptomatic anemia with hemoglobin of 3. Reports NSAID use for muscle pain - HOSPITAL COURSE Hospital Course: He was given blood transfusions and underwent EGD which showed esophagitis without active bleeding. Biopsies were obtained during this EGD and this mo rning his hemoglobin is stable - ALLERGIES Allergies/Adverse Reactions: Allergies Allergy/AdvReac Type Severity Reaction Status Date / Time No Known Drug Allergies Allergy Verified 11/18/23 18:20 - MEDICATIONS Home Medications: Ambulatory Orders Medication Instructions Recorded Confirmed Acetaminophen [Tylenol] 650 mg PO Q4HR PRN tab 11/19/23 Iron Ps Complex/B12/Folic Acid 1 each PO DAILYWM #90 cap 11/19/23 [Ferrex 150 Forte Capsule] Pantoprazole Sodium [Protonix] 40 mg PO DAILY #90 tab 11/19/23 - PHYSICAL EXAM AT DISCHARGE General Appearance: positive: No acute distress Respiratory: positive: Chest non-tender, No respiratory distress Cardiovascular: positive: Regular rate & rhythm, No murmur Abdomen: positive: Non-tender Skin: positive: Color nml Extremities: positive: Non-tender Neurologic/Psychiatric: positive: Oriented x3 - LABS Result Diagrams: 11/20/23 05:11 11/20/23 05:11 - SEPSIS Current Stage of Sepsis: Ruled out - QUALITY (Female Hip Fx Only) Was patient sent home on osteoporosis medication?: No - FOLLOW UP Follow Up: with PCP - TIME SPENT Time Spent in Discharge (Minutes): 20
== END 2023-11-20 11:20 | disposition home or self-care (01) ==
LOC: ED 17:30 → MS2 19:11
PROVIDERS: ADMIT Hospitalist; ATTEND Hospitalist

== ENCOUNTER 2024-02-03 15:46 | Observation (INO) ==
--- NOTE | 2024-02-03 15:56 | ED Physician Documentation ---
PD HPI SYNCOPE Stated complaint Stated Complaint: SYNCOPE Chief complaint Chief Complaint: Cardiac History obtained from History obtained from: Patient and Other (The patient had just been discharged from the ER with DVT. Clear and stable vitals during the ED visit. Walking to the lobby he felt lightheaded and faint and then had syncopal episode for less than 1 minute. Denies chest pain per se.) History of Present Illness Witnessed: Witnessed (The patient was seen to be lightheaded and wobbly and was assisted to the ground. Bystanders did not note a pulse initially and CPR was undertaken for 30 seconds at which point he awoke eyes open and started talking.) Timing - onset: Today Preceding symptoms: Nausea / vomiting (nausea) and Light headed; No Chest pain Associated symptoms: No Seizure Contributing factors: Just stood up and Other (presume had blood clot to lungs at time of the syncope, though is not hypoxic nor hypotensive on initial vitals. ) Meds/Allgy Home Medications Ambulatory Orders Medication Instructions Recorded Confirmed acetaminophen 325 mg tablet 650 mg (2 x 325 mg) PO Q4HR PRN 11/19/23 Pain 1 to 4, or Fever pantoprazole 40 mg tablet,delayed 40 mg PO DAILY gerd #90 tabs 11/19/23 02/03/24 release (Protonix) dabigatran etexilate 150 mg 150 mg PO BID #60 caps 02/03/24 02/03/24 capsule (Pradaxa) docusate sodium 100 mg capsule 100 mg PO DAILY #30 caps 02/03/24 02/03/24 enoxaparin 100 mg/mL subcutaneous 100 mg subcut DAILY 5 days #5 mL 02/03/24 02/03/24 syringe (Lovenox) ferrous gluconate 324 mg (38 mg 324 mg PO DAILY #30 tabs 02/03/24 02/03/24 iron) tablet Allergies Allergies Allergy/AdvReac Type Severity Reaction Status Date / Time No Known Drug Allergies Allergy Verified 02/03/24 11:38 [facility] Medical History Medical History (Updated 02/03/24 @ 18:10 by Pedro Kwon MD) Iron deficiency anemia GERD (gastroesophageal reflux disease) Social History Social History Smoking Status: Former smoker Do you dip or chew tobacco?: No Living arrangement: At home Living Condition: With family Relationship: Level: Independent Do you feel safe in your home environment?: Yes Suffered physical, verbal, emotional, or financial abuse?: No Exam Constitutional normal general appearance and average body habitus Chest palpation of chest normal Respiratory breath sounds equal bilaterally, normal respiratory effort and clear to auscultation bilaterally Cardiovascular normal heart rate noted, regular rhythm noted and no murmur Extremities left leg is still similarly swollen with tenderness. Neurology no movement abnormality noted Psychiatry mental status grossly normal, oriented x3 (once re-aoke, was immediately alert and conversant, speaking against seizur) and thought process normal Skin skin color abnormal (pale) (similar to recent visit. ) Results Vitals Vitals: Vital Signs - 24 hr 02/03/24 15:28 02/03/24 15:55 02/03/24 16:20 Temperature Temperature Source Pulse Rate 102 H 100 H Respiratory Rate 14 17 Blood Pressure 125/88 133/89 H O2 Saturation 90 L 93 Oxygen Delivery Method O2 Source Room air Room air Nasal cannula Oxygen Flow Rate If not protocol: Oxygen Flow, liters/minute 2 Pain Intensity 5 02/03/24 16:37 02/03/24 17:04 02/03/24 17:10 Temperature Temperature Source Pulse Rate 104 H 97 H Respiratory Rate 22 20 Blood Pressure 134/113 H 134/113 H O2 Saturation 98 90 L Oxygen Delivery Method Nasal Cannula O2 Source Nasal cannula Room air Oxygen Flow Rate If not protocol: Oxygen Flow, liters/minute 2 2 Pain Intensity 5 02/03/24 17:12 02/03/24 17:37 02/03/24 18:07 Temperature Temperature Source Pulse Rate 93 H 94 H Respiratory Rate 20 20 Blood Pressure 139/89 H 130/91 H O2 Saturation 99 99 Oxygen Delivery Method Nasal Cannula O2 Source Nasal cannula Nasal cannula Oxygen Flow Rate 2 If not protocol: Oxygen Flow, liters/minute 2 2 Pain Intensity 02/03/24 18:30 02/03/24 19:00 Temperature 36.7 C Temperature Source Temporal Artery Scan Pulse Rate 94 H 96 H Respiratory Rate 24 24 Blood Pressure 124/89 124/89 O2 Saturation 100 100 Oxygen Delivery Method O2 Source Nasal cannula Nasal cannula Oxygen Flow Rate If not protocol: Oxygen Flow, liters/minute 2 2 Pain Intensity Oxygen O2 Source Nasal cannula Oxygen Flow Rate 2 Labs Labs: Laboratory Tests 02/03/24 16:06 WBC 7.6 RBC 3.46 L Hgb 7.5 L Hct 25.8 L MCV 74.6 L MCH 21.7 L MCHC 29.1 L RDW 17.9 H Plt Count 232 MPV 10.1 Neut # (Auto) 4.8 Lymph # (Auto) 2.0 [place] # (Auto) 0.5 Eos # (Auto) 0.2 Baso # (Auto) 0.1 Absolute Nucleated RBC 0.00 Nucleated RBC % 0.0 Sodium 134 L Potassium 3.7 Chloride 108 Carbon Dioxide 25 Anion Gap 1.0 L BUN 11 Creatinine 1.2 Estimated GFR (MDRD) 65 L Glucose 112 H Calcium 9.1 Total Bilirubin 0.3 AST 10 ALT 11 Alkaline Phosphatase 55 Total Protein 6.9 Albumin 3.7 Globulin 3.2 Albumin/Globulin Ratio 1.2 Lipase 41 PD Medical Decision Making ED course Complexity details: considered differential (The patient was not having any dyspnea or hypoxia earlier. He was found to have DVT. He had lightheadedness and then a syncopal episode walking out to the lobby after discharge. Concern would be for developing PEs. CT scan of the chest with contrast was done and showed multiple PEs. ), d/w patient and d/w child welfare consultant (I talked with the hospitalist here who wanted a consultation with cardiology to see if there were any interventional priorities or needs before admission to our facility. Consultation callback is still pending.) Discharge Plan Discharge Patient Disposition: ED Place in Observation Condition: Stable Clinical Impression: Syncope and collapse Anemia Qualifiers: Anemia type: iron deficiency Iron deficiency anemia type: unspecified iron deficiency Qualified Code(s): D50.9 - Iron deficiency anemia, unspecified Left leg DVT Qualifiers: Affected thrombotic vein of extremity: unspecified lower extremity proximal vein Chronicity: acute Qualified Code(s): I82.4Y2 - Acute embolism and thrombosis of unspecified deep veins of left proximal lower extremity Acute leg pain Qualifiers: Laterality: left Qualified Code(s): M79.605 - Pain in left leg Pulmonary embolism Qualifiers: Pulmonary embolism type: unspecified Chronicity: acute Acute cor pulmonale presence: unspecified Qualified Code(s): I26.99 - Other pulmonary embolism without acute cor pulmonale Interventions: ED Admission Assessment Last Done: 02/03/24 20:02
[2024-02-03] MEDS ORDERED: iohexoL-300 100 ML VIAL ONE ×2 (16:07→16:37)
[2024-02-03] MEDS: SODIUM CHLORIDE 0.9% 1,000 ML IV STA (16:08)
[2024-02-03 16:20] LABS: BASOPHILS # (AUTO) 0.1 10^3/uL (0.0-0.1); BASOPHILS % (AUTO) 0.8 %; EOSINOPHILS # (AUTO) 0.2 10^3/uL (0.0-0.7); EOSINOPHILS % (AUTO) 2.9 %; HCT - HEMATOCRIT 25.8 % (42.0-52.0); HGB - HEMOGLOBIN 7.5 g/dL (14.0-18.0); LYMPHOCYTES % (AUTO) 26.1 %; MEAN CORPUSCULAR HEMOGLOBIN 21.7 pg (27.0-31.0); MEAN CORPUSCULAR HGB CONC 29.1 g/dL (32.0-36.0); MEAN CORPUSCULAR VOLUME 74.6 fL (80.0-94.0); MEAN PLATELET VOLUME 10.1 fL (7.4-11.4); MONOCYTES # (AUTO) 0.5 10^3/uL (0.0-1.0); MONOCYTES % (AUTO) 5.9 %; NEUTROPHILS # (AUTO) 4.8 10^3/uL (1.5-6.6); NEUTROPHILS % (AUTO) 63.6 %; PLT - PLATELET COUNT 232 10^3/uL (130-450); RED BLOOD COUNT 3.46 10^6/uL (4.70-6.10); RED CELL DISTRIBUTION WIDTH 17.9 % (12.0-15.0); WHITE BLOOD COUNT 7.6 x10^3/uL (4.8-10.8)
[2024-02-03 16:29] LABS: ALBUMIN 3.7 g/dL (3.2-5.5); ALBUMIN/GLOBULIN RATIO 1.2 (1.0-2.2); BILIRUBIN,TOTAL 0.3 mg/dL (0.2-1.0); CALCIUM 9.1 mg/dL (8.5-10.3); CREATININE 1.2 mg/dL (0.6-1.3); POTASSIUM 3.7 mmol/L (3.5-4.5); TOTAL PROTEIN 6.9 g/dL (6.4-8.9)
[2024-02-03] MEDS: iohexoL-300 100 ML VIAL IVP ONE (16:55)
--- NOTE | 2024-02-03 17:02 | CT Report ---
PROCEDURE: CT Head WO INDICATIONS: syncope TECHNIQUE: Noncontrast 4.5 mm thick angled axial sections acquired from the foramen magnum to the vertex. For r adiation dose reduction, the following was used: automated exposure control, adjustment of mA and/or kV according to patient size. COMPARISON: None. FINDINGS: Image quality: Excellent. CSF spaces: Basal cisterns are patent. No extra-axial fluid collections. Ventricles are normal in size and shape. Brain: No midline shift. No intracranial masses or hemorrhage. Weaver-white matter interface is norm al. Skull and face: Calvarium and visualized facial bones are intact, without suspicious lesions. Sinuses: Visualized sinuses and mastoids are clear. IMPRESSION: No acute intracranial pathology. Reviewed by: Aguilar Du MD on 02/03/2024 5:01 PM [facility] Approved by: Aguilar Du MD on 02/03/2024 5:01 PM [facility] Station ID: [id number]
--- NOTE | 2024-02-03 17:07 | CT Report ---
PROCEDURE: CT Angio Chest INDICATIONS: DVT, with syncope CONTRAST: 80ml omni 300 TECHNIQUE: After the administration of intravenous contrast, 2 mm axial images were acquired from the pulmonary apices to the posterior costophrenic angles during the arterial phase. In addition, 1 mm lung kernel and 5 mm soft tissue kernel reconstructions were performed. 3-dimensional coronal oblique maximum int ensity projection (MIP) reformats, 8 mm axial MIP, and 5 mm coronal and sagittal MPR reformats were t hen performed through the thorax. For radiation dose reduction, the following was used: automated exp osure control, adjustment of mA and/or kV according to patient size. COMPARISON: None. FINDINGS: Image quality: Excellent. Large vessels: Extensive bilateral pulmonary emboli including distal main pulmonary artery clot bilat erally. On the left clot extends into the left upper lobe pulmonary artery and left lower lobe pulmon talita artery into multiple nasal segments. On the right, clot extends into the right middle lobe pulmon talita artery and right lower lobe pulmonary artery and multiple basilar branches. Lungs and pleura: No consolidation. No pleural effusions. No pneumothorax. No suspicious pulmonary n odules which require follow up. Mediastinum: Heart size is mildly enlarged. There is no definite evidence of reversal of the RV LV ra pete. No pericardial effusion. Moderate hiatal hernia.. No mediastinal adenopathy by size criteria. Chest wall and lower neck: Thyroid is unremarkable. No axillary or supraclavicular adenopathy by size . Bones: No aggressive osseous abnormality. Upper Abdomen: Unremarkable. IMPRESSION: Large volume pulmonary emboli without clear evidence of right heart strain. Mild cardiomegaly. Moderate hiatal hernia. Comment: Consider echo to evaluate presence or absence of right heart strain. Above discussed with Pedro Kwon MD at the time of dictation on 02/02/2025 at 1704 hours. Reviewed by: Aguilar Du MD on 02/03/2024 5:05 PM PST Approved by: Aguilar Du MD on 02/03/2024 5:05 PM PST Station ID: [id number]
--- NOTE | 2024-02-03 17:07 | XRAY Report ---
XR Chest 1V HISTORY: syncope COMPARISON: 02/03/2024. TECHNIQUE: Frontal view of the chest is submitted for interpretation. FINDINGS/IMPRESSION: No pleural effusion or pneumothorax. No pulmonary edema or focal consolidation. Stable cardiomegaly. Reviewed by: Shell Garrido MD on 02/03/2024 5:06 PM PST Approved by: Shell Garrido MD on 02/03/2024 5:06 PM PST Station ID: [id number]
--- NOTE | 2024-02-03 18:09 | ED Physician Documentation ---
ED Addendum Addendum Addendum: He has a history of esophagitis related to NSAIDs and was admitted for a GI bleed due to the same in October of this year. He was started on PPI. Seen by my partner earlier today with leg pain and diagnosed with an extensive DVT and given Lovenox. Subsequently had a potential rest in the hallway after discharge and is now found to have bilateral PEs on CT. But without clear evidence of right heart strain. He is hemodynamically stable at this point and Dr. Kwon had tried to admit him here but our hospitalist wanted us to talk to cardiology to query the need for transfer for procedural intervention and he was signed out to me at 6 PM pending callback from cardiology. He is anemic but Dr. Kwon reports to me that he is guaiac negative. At 6:55 PM I discussed the case by phone with Dr. Sudarshan Plata, sausage cooker in [place]. He heard the story reviewed the CT did not feel like he needed urgent transfer for thrombectomy. Recommends admission here on anticoagulation with echo tomorrow. Happy to reconsider if there are significant abnormal findings on echo. Spoke with Dr. Cammie Alamo, hospitalist for admission here at 7:28 PM. Discharge Plan Discharge Patient Disposition: ED Place in Observation Condition: Stable Clinical Impression: Syncope and collapse Anemia Qualifiers: Anemia type: iron deficiency Iron deficiency anemia type: unspecified iron deficiency Qualified Code(s): D50.9 - Iron deficiency anemia, unspecified Left leg DVT Qualifiers: Affected thrombotic vein of extremity: unspecified lower extremity proximal vein Chronicity: acute Qualified Code(s): I82.4Y2 - Acute embolism and thrombosis of unspecified deep veins of left proximal lower extremity Acute leg pain Qualifiers: Laterality: left Qualified Code(s): M79.605 - Pain in left leg Pulmonary embolism Qualifiers: Pulmonary embolism type: unspecified Chronicity: acute Acute cor pulmonale presence: unspecified Qualified Code(s): I26.99 - Other pulmonary embolism without acute cor pulmonale Prescriptions: No Action acetaminophen 325 MG tablet 650 mg PO Q4HR PRN (Reason: Pain 1 to 4, or Fever) 0RF pantoprazole [Protonix] 40 MG tablet,delayed release (DR/EC) 40 mg PO DAILY Qty: 90 0RF Rx Instructions: take 30 min before breakfast on an empty stomach ferrous gluconate 324 mg (38 mg iron) tablet 324 mg PO DAILY Qty: 30 0RF docusate sodium 100 mg capsule 100 mg PO DAILY Qty: 30 0RF dabigatran etexilate [Pradaxa] 150 mg capsule 150 mg PO BID Qty: 60 2RF enoxaparin [Lovenox] 100 mg/mL syringe 100 mg subcut DAILY 5 Days Qty: 5 0RF Print Language: Persian Stand Alone Forms: PCP List
--- NOTE | 2024-02-03 18:52 | PROVIDER PROGRESS NOTE ---
Subjective Subjective Subjective: Patient is a 43-year-old male with a history of gastritis, severe anemia who presents due to left lower extremity swelling. Per ED documentation, he came in for left extremity swelling and pain. He initially had gone to an urgent care who had told him to come to the emergency room. An ultrasound of his lower extremity was done, and it showed an extensive left lower extremity DVT. His insurance did not cover Xarelto or Eliquis, so he was started on dabigatran, and Lovenox, and discharged from the ED. On his way out, in the hallway, he had a syncopal episode. He may have lost pulse, CODE BLUE was called, and CPR was started. ROSC was achieved. Patient was responsive and talking after this event. As such, he was brought back to the emergency room. Here, he was found to be tachycardic in the 90s to 100 range. He was saturating 90% on room air, and this improved to 99% on 2 L oxygen. His blood pressure was normotensive at 139/89. CTA was done, and it did show large volume pulmonary emboli. On the left, clot extends into the left upper lobe pulmonary artery and left lower lobe pulmonary artery. On the right the clot extends into the middle right pulmonary artery and right lower lobe pulmonary artery and multiple bibasilar branches. There is no clear evidence of right heart strain, but it was not ruled out in the CTA. Radiologist recommended ECHO to further quantify RV to LV ratio. Awaiting cardiology callback re possible EKOS in setting of large PE, unclear RV/LV ratio or right heart strain, symptomatic (aka syncopal event, ?unclear cardiac arrest), tachycardia. If not transferred, will be admitted overnight by telehealth. Objective Vital Signs/Intake & Output Vital Signs: Vital Signs x48h Temp Pulse Resp BP Pulse Ox O2 Flow Rate 02/03/24 18:30 98.1 F 94 H 24 124/89 100 2 02/03/24 18:07 94 H 20 130/91 H 99 2 02/03/24 17:37 93 H 20 139/89 H 99 2 02/03/24 17:10 2 02/03/24 17:04 97 H 20 134/113 H 90 L 02/03/24 16:37 104 H 22 134/113 H 98 2 02/03/24 16:20 100 H 17 133/89 H 93 2 02/03/24 15:55 102 H 14 125/88 90 L Intake & Output: Intake & Output 01/31/24 02/01/24 02/02/24 02/03/24 23:59 23:59 23:59 23:59 Intake Total 1000 / 1000 Balance 1000 / 1000 Weight (kg) 109 kg Lab Results 02/03/24 16:06 02/03/24 16:06 Other Labs: Lab Results x24hrs 02/03/24 Range/Units 16:06 WBC 7.6 (4.8-10.8) x10^3/uL RBC 3.46 L (4.70-6.10) 10^6/uL Hgb 7.5 L (14.0-18.0) g/dL Hct 25.8 L (42.0-52.0) % MCV 74.6 L (80.0-94.0) fL MCH 21.7 L (27.0-31.0) pg MCHC 29.1 L (32.0-36.0) g/dL RDW 17.9 H (12.0-15.0) % Plt Count 232 (130-450) 10^3/uL MPV 10.1 (7.4-11.4) fL Neut # (Auto) 4.8 (1.5-6.6) 10^3/uL Lymph # (Auto) 2.0 (1.5-3.5) 10^3/uL [place] # (Auto) 0.5 (0.0-1.0) 10^3/uL Eos # (Auto) 0.2 (0.0-0.7) 10^3/uL Baso # (Auto) 0.1 (0.0-0.1) 10^3/uL Absolute Nucleated RBC 0.00 x10^3/uL Nucleated RBC % 0.0 /100WBC Sodium 134 L (135-145) mmol/L Potassium 3.7 (3.5-4.5) mmol/L Chloride 108 (101-111) mmol/L Carbon Dioxide 25 (21-32) mmol/L Anion Gap 1.0 L (6-13) BUN 11 (6-20) mg/dL Creatinine 1.2 (0.6-1.3) mg/dL Estimated GFR (MDRD) 65 L (>89) Glucose 112 H (74-104) mg/dL Calcium 9.1 (8.5-10.3) mg/dL Total Bilirubin 0.3 (0.2-1.0) mg/dL AST 10 (10-42) IU/L ALT 11 (10-60) IU/L Alkaline Phosphatase 55 (42-121) IU/L Total Protein 6.9 (6.4-8.9) g/dL Albumin 3.7 (3.2-5.5) g/dL Globulin 3.2 (2.1-4.2) g/dL Albumin/Globulin Ratio 1.2 (1.0-2.2) Lipase 41 (11-82) U/L
[2024-02-03] MEDS ORDERED: DOCUSATE SODIUM 100 MG CAPSULE PO PRN (19:57)
[2024-02-03] MEDS ORDERED: ONDANSETRON 4 MG/2 ML VIAL IVP PRN (20:00)
[2024-02-03] MEDS ORDERED: ONDANSETRON ODT 4 MG TABLET TL PRN (20:00)
[2024-02-03] MEDS ORDERED: SODIUM CHLORIDE FLUSH 0.9% 10 ML SYRINGE IVP PRN (20:00)
--- NOTE | 2024-02-03 20:03 | HISTORY & PHYSICAL EXAMINATION ---
Chief Complaint Chief Complaint Chief Complaint: LLE Swelling History of Present Illness Admitted From Admitted From:: ER History Obtained From Records Reviewed: Yes History obtained from: Pt, staff, chart Exam Limitations: Virtual exam History of Present Illness HPI Comment/Other: H&P was conducted via video remotely, using [employer]. [place] is in [place]. Physician is in [place]. No one is at bedside. 43 yo M with PMH of severe anemia, esophagitis on EGD (11/18) d/t NSAIDs presented to the ER with c/o 4 day h/o LLE swelling from groin to foot. Pt was hospitalized in 10/2023. Since his D/C, he has noticed palpitations. O/W, he was in his usual state of health. No recent travel. No other recent illness. 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 About 1 month ago, he had LLE swelling x 1 day and it resolved spontaneously. Then, 4 days ago, he began to have LLE swelling again. No injury/trauma to leg. No redness/warmth. The leg was swollen from groin to toes about 2x the size of his RLE. He began to have LLE pain, gradually increasing, worse with walking. No F/C. +palpitations x 3 mths, no change since hospitalization in 10/2023. He did not notice any other symptoms until ER staff noted that he had increased breathing and then he realized that was true. No cough/chest congestion/F/C. No bleeding. Pt initially went to an Urgent Care, and they sent him to the ER. In the ER, Venous Doppler LLE: +Extensive left lower extremity DVT. He was given Lovenox 100 mg SQ x 1 in the ER and D/C'd with script for Pradaxa. He walked to the ER waiting room hallway towards the bathroom when he had a Syncopal/LOC episode. Staff could not find his pulse, CODE BLUE was called, and CPR was started. ROSC was quickly achieved. Patient was responsive and talking after this event. In the ER, BP 160/95, HR 106, SpO2 90% RA-99% 2L NC O2, Hgb 7.5, MCV 74.6, Iron 10, FOB neg EKG: Sinus Tachy at 100 bpm, no STTw changes CXR: No pleural effusion or pneumothorax. No pulmonary edema or focal consolidation. Stable cardiomegaly. Chest CTA: Large volume pulmonary emboli without clear evidence of right heart strain. Mild cardiomegaly. Moderate hiatal hernia. Comment: Consider echo to evaluate presence or absence of right heart strain. Head CT: [facility] ER Physician D/W Dr. Sudarshan Plata, Stained Glass Artist in [place]. He heard the story reviewed the CT did not feel like he needed urgent transfer for thrombectomy. Recommends admission here on anticoagulation with echo tomorrow. Happy to reconsider if there are significant abnormal findings on echo. Review of Systems Status of ROS: 10 or more systems reviewed and unremarkable except as noted in history and below [facility] Medical History Medical History (Updated 02/03/24 @ 18:10 by Pedro Kwon MD) Iron deficiency anemia GERD (gastroesophageal reflux disease) Social History Social History Smoking Status: Former smoker Do you dip or chew tobacco?: No Living arrangement: At home Living Condition: With family Relationship: Level: Independent Do you feel safe in your home environment?: Yes Suffered physical, verbal, emotional, or financial abuse?: No POLST Patient has POLST: No Meds/Allgy Home Medications Ambulatory Orders Medication Instructions Recorded Confirmed acetaminophen 325 mg tablet 650 mg (2 x 325 mg) PO Q4HR PRN 11/19/23 Pain 1 to 4, or Fever pantoprazole 40 mg tablet,delayed 40 mg PO DAILY gerd #90 tabs 11/19/23 02/03/24 release (Protonix) dabigatran etexilate 150 mg 150 mg PO BID #60 caps 02/03/24 02/03/24 capsule (Pradaxa) docusate sodium 100 mg capsule 100 mg PO DAILY #30 caps 02/03/24 02/03/24 enoxaparin 100 mg/mL subcutaneous 100 mg subcut DAILY 5 days #5 mL 02/03/24 02/03/24 syringe (Lovenox) ferrous gluconate 324 mg (38 mg 324 mg PO DAILY #30 tabs 02/03/24 02/03/24 iron) tablet Allergies Allergies Allergy/AdvReac Type Severity Reaction Status Date / Time No Known Drug Allergies Allergy Verified 02/03/24 11:38 Exam Constitutional normal general appearance and no apparent distress HENMT normocephalic Eyes PERRL and no scleral icterus Respiratory cart stethoscope not working; per ER Provider: CTA B/L Cardiovascular cart stethoscope not working; per ER Provider: RRR, no murmurs Gastrointestinal per ER Provider: non-distended, NT, Soft Extremities per ER Provider: moves all extrem, The left leg shows general mildly pitting edema and swelling all the way up to the mid thigh. There is tenderness in the popliteal and medial thigh area. Slightly tender in the upper calf. Not really tender in the lower calf. Normal pulses color and capillary refill in the foot and toes Neurology A+Ox3, normal speech, cooperative; per ER Provider: NFD Conclusion/Plan Problem List (1) Pulmonary embolism: Plan: Pulmonary Emboli B/L LLE DVT Tachycardia Shortness of breath LLE Swelling, pain -Venous Doppler LLE: +Extensive left lower extremity DVT. -He was given Lovenox 100 mg SQ x 1 in the ER -BP 160/95, HR 106, SpO2 90% RA-99% 2L NC O2 -EKG: Sinus Tachy at 100 bpm, no STTw changes -CXR: No pleural effusion or pneumothorax. No pulmonary edema or focal consolidation. Stable cardiomegaly. -Chest CTA: Large volume pulmonary emboli without clear evidence of right heart strain. Mild cardiomegaly. Moderate hiatal hernia. Comment: Consider echo to evaluate presence or absence of right heart strain. Head CT: [facility] -ER Physician D/W Dr. Sudarshan Plata, Stained Glass Artist in [place]. He heard the story reviewed the CT did not feel like he needed urgent transfer for thrombectomy. Recommends admission here on anticoagulation with echo tomorrow. Happy to reconsider if there are significant abnormal findings on echo. -admit to Obs/Med Tele -continue Lovenox 1 mg/kg BID -Echo ordered Syncope Coded -He walked to the ER waiting room hallway towards the bathroom when he had a Syncopal/LOC episode. Staff could not find his pulse, CODE BLUE was called, and CPR was started. ROSC was quickly achieved. Patient was responsive and talking after this event. -monitor on tele; Echo ordered SARA H/o Esophagitis -Hgb 7.5, MCV 74.6, Iron 10, FOB neg -H/H q6h -continue home meds: PPI, iron VTE Prophylaxis: on Lovenox Code Status: Full Code ~Cammie Guevara MD Hospitalist Qualifiers: Acute cor pulmonale presence: unspecified Chronicity: acute Pulmonary embolism type: unspecified Qualified Code(s): I26.99 - Other pulmonary embolism without acute cor pulmonale Lab Results Lab results reviewed: Yes 02/03/24 20:49 02/03/24 16:06
[2024-02-03] MEDS: ENOXAPARIN 120 MG/0.8 ML SYRINGE SUBQ SCH (20:39)
[2024-02-03 20:58] LABS: HCT - HEMATOCRIT 24.3 % (42.0-52.0); HGB - HEMOGLOBIN 7.2 g/dL (14.0-18.0)
[2024-02-04] MEDS: ACETAMINOPHEN 325 MG TABLET PO PRN (00:40)
[2024-02-04] MEDS: CALCIUM CARBONATE CHEW 500 MG TABLET PO PRN (00:41)
[2024-02-04] MEDS: SODIUM CHLORIDE FLUSH 0.9% 10 ML SYRINGE IVP SCH (01:06)
[2024-02-04 03:05] LABS: HCT - HEMATOCRIT 25.9 % (42.0-52.0); HGB - HEMOGLOBIN 7.5 g/dL (14.0-18.0)
[2024-02-04 05:15] LABS: BASOPHILS # (AUTO) 0.1 10^3/uL (0.0-0.1); BASOPHILS % (AUTO) 0.6 %; EOSINOPHILS # (AUTO) 0.2 10^3/uL (0.0-0.7); EOSINOPHILS % (AUTO) 2.5 %; HCT - HEMATOCRIT 25.5 % (42.0-52.0); HGB - HEMOGLOBIN 7.4 g/dL (14.0-18.0); LYMPHOCYTES # (AUTO) 2.1 10^3/uL (1.5-3.5); MEAN CORPUSCULAR HEMOGLOBIN 21.5 pg (27.0-31.0); MEAN CORPUSCULAR VOLUME 74.1 fL (80.0-94.0); MEAN PLATELET VOLUME 10.4 fL (7.4-11.4); MONOCYTES # (AUTO) 0.5 10^3/uL (0.0-1.0); MONOCYTES % (AUTO) 5.6 %; NEUTROPHILS # (AUTO) 5.4 10^3/uL (1.5-6.6); NEUTROPHILS % (AUTO) 65.8 %; PLT - PLATELET COUNT 223 10^3/uL (130-450); RED BLOOD COUNT 3.44 10^6/uL (4.70-6.10); RED CELL DISTRIBUTION WIDTH 17.9 % (12.0-15.0); WHITE BLOOD COUNT 8.3 x10^3/uL (4.8-10.8)
[2024-02-04 05:27] LABS: CALCIUM 9.1 mg/dL (8.5-10.3); CREATININE 1.1 mg/dL (0.6-1.3)
[2024-02-04 06:50] VITALS: O2SAT 97
[2024-02-04] MEDS: PANTOPRAZOLE 40 MG TABLET PO SCH (08:06)
[2024-02-04] MEDS: FERROUS GLUCONATE 324 MG TABLET PO SCH (08:06)
[2024-02-04 09:27] LABS: HCT - HEMATOCRIT 26.9 % (42.0-52.0); HGB - HEMOGLOBIN 7.7 g/dL (14.0-18.0)
[2024-02-04 12:45] VITALS: BP 127/79; TEMP 97.9
--- NOTE | 2024-02-04 13:18 | PHARMACY PROGRESS NOTE ---
Best Possible Medication History Admit Date and Time: 02/03/241999 Home Medications Medication Instructions Recorded Confirmed Type acetaminophen 325 mg tablet 650 mg (2 x 325 mg) PO Q4HR PRN 11/19/23 02/04/24 Rx Pain 1 to 4, or Fever pantoprazole 40 mg tablet,delayed 40 mg PO DAILY gerd #90 tabs 11/19/23 02/04/24 Rx release (Protonix) Processed by: Pharmacy Medications reviewed in ED?: No Medication History completed: Yes Patient Interview: Completed Secondary Source(s): Insurance records [facility] Statement: As the person ultimately responsible for medication therapy, providers are able to order a medication from an existing home medication list in [facility] via the "Reconcile Routine" prior to Confirmation of that medication by office support clerk. Such practice is discouraged except when the physician, in their clinical judgment, deems that a medical need exists for a medication without regard to previous use.
--- NOTE | 2024-02-04 15:07 | Discharge Summary ---
"Discharge Summary Admit Date: 02/03/24 Discharge Date: 02/04/24 Discharging Provider: Sonia Gann MD Primary Care Provider: no PCP yet Code Status: Attempt Resuscitation DIAGNOSES Discharge Diagnoses with Status of Each Condition: 1. Bilateral pulmonary emboli 2. Left lower extremity DVT 3. Syncope 4. Cardiopulmonary arrest 5. Iron deficiency anemia 6. Nonsteroidal induced esophagitis HPI History of Present Illness: 43 yo M with PMH of severe anemia, esophagitis on EGD (11/18) d/t NSAIDs presented to the ER with c/o 4 day h/o LLE swelling from groin to foot. Pt was hospitalized in 10/2023. Since his D/C, he has noticed palpitations. O/W, he was in his usual state of health. No recent travel. No other recent illness. 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 About 1 month ago, he had LLE swelling x 1 day and it resolved spontaneously. Then, 4 days ago, he began to have LLE swelling again. No injury/trauma to leg. No redness/warmth. The leg was swollen from groin to toes about 2x the size of his RLE. He began to have LLE pain, gradually increasing, worse with walking. No F/C. +palpitations x 3 mths, no change since hospitalization in 10/2023. He did not notice any other symptoms until ER staff noted that he had increased breathing and then he realized that was true. No cough/chest congestion/F/C. No bleeding. Pt initially went to an Urgent Care, and they sent him to the ER. In the ER, Venous Doppler LLE: +Extensive left lower extremity DVT. He was given Lovenox 100 mg SQ x 1 in the ER and D/C'd with script for Pradaxa. He walked to the ER waiting room hallway towards the bathroom when he had a Syncopal/LOC episode. Staff could not find his pulse, COREY CADENA was called, and CPR was started. ROSC was quickly achieved. Patient was responsive and talking after this event. In the ER, BP 160/95, HR 106, SpO2 90% RA-99% 2L NC O2, Hgb 7.5, MCV 74.6, Iron 10, FOB neg EKG: Sinus Tachy at 100 bpm, no STTw changes CXR: No pleural effusion or pneumothorax. No pulmonary edema or focal consolidation. Stable cardiomegaly. Chest CTA: Large volume pulmonary emboli without clear evidence of right heart strain. Mild cardiomegaly. Moderate hiatal hernia. Comment: Consider echo to evaluate presence or absence of right heart strain. Head CT: [facility] ER Physician D/W Dr. Sudarshan Plata, Healthcare Risk Control Consultant in [place]. He heard the story reviewed the CT did not feel like he needed urgent transfer for thrombectomy. Recommends admission here on anticoagulation with echo tomorrow. Happy to reconsider if there are significant abnormal findings on echo. CONSULTS | PROCEDURES Procedures: 1. Chest x-ray without acute cardiopulmonary process. Repeat chest x-ray again without any changes. 2. Venous duplex with extensive left lower extremity DVT 3. Head CT done for syncope had no acute intracranial pathology 4. Chest thorax CT angiogram with large volume extensive bilateral pulmonary emboli without clear evidence of right heart strain. Mild cardiomegaly. Moderate hiatal hernia. 5. Echocardiogram with mildly dilated and mildly reduced function of the right side. Moderate pulmonary hypertension, PASP 49 mmHg with normal right atrial pressures. Mild concentric left ventricular hypertrophy with normal systolic function and ejection fraction of 55%. Left atrium normal in size. HOSPITAL COURSE Hospital Course: The patient was placed in observation. He was monitored on telemetry. He had no further shortness of breath, chest pain, palpitations. Vital signs stable. O2 sats remained stable off of oxygen. Echocardiogram confirmed mild right ventricular strain. Telemetry remained normal. While he was in the hospital he was anticoagulated with Lovenox and Eliquis. His insurance company does not pay for Eliquis and he was discharged on Pradaxa. I explained to him that he has an iron deficiency anemia, and now DVT with PE. He needs to establish himself with a primary care provider. He already has a list. From there he needs to be referred to hematology for evaluation for hypercoagulable state or malignancy. ALLERGIES Allergies Allergy/AdvReac Type Severity Reaction Status Date / Time No Known Drug Allergies Allergy Verified 02/03/24 11:38 MEDICATIONS Ambulatory Orders Medication Instructions Recorded Confirmed acetaminophen 325 mg tablet 650 mg (2 x 325 mg) PO Q4HR PRN 11/19/23 02/04/24 Pain 1 to 4, or Fever pantoprazole 40 mg tablet,delayed 40 mg PO DAILY gerd #90 tabs 11/19/23 02/04/24 release (Protonix) PHYSICAL EXAM AT DISCHARGE General Appearance: positive No acute distress and Alert Eyes Bilateral: positive Normal inspection, PERRL and EOMI Neck: positive Nml inspection, Thyroid nml and No JVD; negative Stiff neck Respiratory: positive No respiratory distress and Breath sounds nml Cardiovascular: positive Regular rate & rhythm, No murmur and No gallop Abdomen: positive Non-tender, No organomegaly and Nml bowel sounds Extremities: positive Full ROM, Pedal edema (Diffuse mild swelling from left foot up to left calfNo redness or heat), Calf tenderness (On left) and Sherrill's sign/cords (On left) Neurologic/Psychiatric: positive Oriented x3, CN's nml (2-12), Motor nml and Mood/affect nml LABS 02/04/24 09:09 02/04/24 05:00 TIME SPENT Time Spent in Discharge (Minutes): 25 Discharge Plan Discharge Patient Disposition: Home, Self Care Condition: Stable Medically Cleared Date:: 02/04/24 Prescriptions: Continued acetaminophen 325 MG tablet 650 mg PO Q4HR PRN (Reason: Pain 1 to 4, or Fever) 0RF pantoprazole [Protonix] 40 MG tablet,delayed release (DR/EC) 40 mg PO DAILY Qty: 90 0RF Rx Instructions: take 30 min before breakfast on an empty stomach Diet: Regular Interventions: Belongings Inventory Last Done: 02/03/24 20:20 Discharge Last Done: 02/04/24 14:03 Discharge Checklist - Nursing Last Done: 02/04/24 14:03 Health Concerns: You are a 43-year-old white male who has a history of anemia. Because the anemia caused fatigue and shortness of breath, you were admitted to the hospital for transfusion and an EGD was performed October 2023 and you were felt to have esophagitis from nonsteroidal therapy. And that was causing you to be anemic. However you still need a colonoscopy. 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 Those 2 things of being in the hospital, and sitting on the job can cause an increased risk for a blood clot in the leg. You have been having palpitations for about 3 months. You then went to the urgent care for the left leg swelling and then they sent you to the emergency room. The emergency room noted that your left leg was very swollen, you had an increased respiratory rate. The ER doctor was worried about a blood clot in the leg and the ultrasound of the leg showed a large clot of the left leg. You received an injection for a blood thinner and also were to be sent home on a new medicine to make sure no more clot developed. But as you were leaving the emergency room, to go to the bathroom, you had a sudden loss of consciousness. CPR was started immediately and you regained consciousness and were awake and alert immediately. You have been placed in the hospital overnight for the blood clot. We examined the strain on your heart from this blood clot going to your lungs and you do have mild right sided heart strain. But not severe. After being in the hospital overnight, your oxygen is stable. No further episodes of chest pain or shortness of breath. No loss of consciousness. Care Plan Goals: We would recommend that you get to the bottom of why you are having blood clots. While the risk of being in the hospital is known to increase blood clot in the leg, blood disorders also can increase your risk of blood clot. You need to be seen by international accountant to do the workup. Plan of Treatment: 1. Establish yourself with a primary care provider. They will need to see you in follow-up for the use of the blood clot medicine and to start the workup for why you have blood clots. 2. Get a referral from the primary care provider to a international accountant. One of the possibilities, albeit a low possibility, is cancer causing your predisposition to blood clots. And that international accountant would be able to decipher that. They would also be able to figure out if you have a blood clotting disorder. 3. You are being discharged with a new prescription for a blood thinner called Pradaxa. You will take it twice a day. While you are on it you cannot take aspirin, Aleve, ibuprofen or any other nonsteroidal medication. 4. To protect your esophagus from the already diagnosed inflammation from nonsteroidals, make sure you take your Protonix every day. 5. You can resume normal activity of walking, driving, but we would recommend you not work for the next few days until February 08. You can resume work February 09. Print Language: Estonian Patient Instructions: Dabigatran oral capsules, Embolism Pulmonary Stand Alone Forms: PCP List"
== END 2024-02-04 13:45 | disposition home or self-care (01) ==
LOC: MS2 15:46 → ED 15:46 → MS2 20:08
PROVIDERS: ADMIT Internal Medicine; ATTEND Internal Medicine
DX: K44.9 Diaphragmatic hernia without obstruction or gangrene; I26.99 Other pulmonary embolism without acute cor pulmonale; I51.7 Cardiomegaly; K21.00 Gastro-esophageal reflux disease with esophagitis, without bleeding; T39.395A Adverse effect of other nonsteroidal anti-inflammatory drugs [NSAID], initial encounter; I27.20 Pulmonary hypertension, unspecified; Z87.891 Personal history of nicotine dependence; D50.9 Iron deficiency anemia, unspecified; R00.0 Tachycardia, unspecified; I46.9 Cardiac arrest, cause unspecified; I82.4Z2 Acute embolism and thrombosis of unspecified deep veins of left distal lower extremity

== ENCOUNTER 2024-03-16 15:11 | Observation (INO) ==
[2024-03-16] MEDS ORDERED: SODIUM CHLORIDE FLUSH 0.9% 10 ML SYRINGE IVP PRN (16:01)
[2024-03-16] MEDS ORDERED: ONDANSETRON ODT 4 MG TABLET TL PRN (16:01)
[2024-03-16] MEDS ORDERED: ONDANSETRON 4 MG/2 ML VIAL IVP PRN (16:01)
[2024-03-16 16:05] LABS: BASOPHILS % (AUTO) 0.8 %; EOSINOPHILS # (AUTO) 0.3 10^3/uL (0.0-0.7); EOSINOPHILS % (AUTO) 5.5 %; HCT - HEMATOCRIT 28.7 % (42.0-52.0); HGB - HEMOGLOBIN 8.2 g/dL (14.0-18.0); LYMPHOCYTES # (AUTO) 1.6 10^3/uL (1.5-3.5); LYMPHOCYTES % (AUTO) 31.4 %; MEAN CORPUSCULAR HEMOGLOBIN 24.6 pg (27.0-31.0); MEAN CORPUSCULAR HGB CONC 28.6 g/dL (32.0-36.0); MEAN CORPUSCULAR VOLUME 86.2 fL (80.0-94.0); MEAN PLATELET VOLUME 10.5 fL (7.4-11.4); MONOCYTES # (AUTO) 0.3 10^3/uL (0.0-1.0); MONOCYTES % (AUTO) 5.1 %; NEUTROPHILS # (AUTO) 2.9 10^3/uL (1.5-6.6); PLT - PLATELET COUNT 346 10^3/uL (130-450); RED BLOOD COUNT 3.33 10^6/uL (4.70-6.10); RED CELL DISTRIBUTION WIDTH 20.8 % (12.0-15.0); WHITE BLOOD COUNT 5.1 x10^3/uL (4.8-10.8)
[2024-03-16 16:06] LABS: SLIDE REVIEW? Indicated
[2024-03-16] MEDS ORDERED: iohexoL-300 100 ML VIAL ONE (16:16)
[2024-03-16 16:19] LABS: ALBUMIN 4.3 g/dL (3.2-5.5); ALBUMIN/GLOBULIN RATIO 1.8 (1.0-2.2); BILIRUBIN,TOTAL 0.4 mg/dL (0.2-1.0); CALCIUM 9.9 mg/dL (8.5-10.3); CREATININE 1.4 mg/dL (0.6-1.3); POTASSIUM 3.6 mmol/L (3.5-4.5); TOTAL PROTEIN 6.7 g/dL (6.4-8.9)
[2024-03-16 16:30] LABS: PLATELET MORPHOLOGY NORMAL APPEARANCE (NORMAL)
[2024-03-16 16:31] LABS: PLATELET ESTIMATE, MANUAL NORMAL (130-450,000) (NORMAL)
[2024-03-16 16:34] LABS: PARTIAL THROMBOPLASTIN TIME 40.1 secs (24.9-33.3)
[2024-03-16 16:38] LABS: INR 1.4 (0.8-1.2); PT - PROTHROMBIN TIME 14.8 secs (9.9-12.6)
[2024-03-16] MEDS: HEPARIN 25000UNITS/500ML (D5W) 25,000 UNIT/500 ML BAG IV SCH (17:19)
[2024-03-16] MEDS: SODIUM CHLORIDE FLUSH 0.9% 10 ML SYRINGE IVP SCH (17:24)
--- NOTE | 2024-03-16 17:49 | HISTORY & PHYSICAL EXAMINATION ---
<Statement entered by Priyank Hutchins DNP - 03/17/24 10:48> Patient was seen and examined by me with a separate encounter after being seen by JOHN student. I reviewed the student's documentation including patient history, physical examination, laboratory, imaging, clinical assessment and treatment plan. I have discussed the management of the patient with the student, and with the patient. There are no changes. Chief Complaint Chief Complaint Chief Complaint: Symptomatic anemia History of Present Illness Admitted From Admitted From:: Home / Direct admit History Obtained From Records Reviewed: Patient History obtained from: Patient Exam Limitations: none History of Present Illness HPI Comment/Other: Patient had a PE related syncopal event secondary to hospitalization for DVT in the L leg 02/02/25. He was placed on DOAC after discharge. He states no shortness of breath, no dyspnea with exertion, no recurrence of lower extremity pain, denies any noticeable bleeding, no dark stools or bright red blood per rectum, no coffee ground emesis or hemoptysis. He denies any chest pain, denies abdominal pain, denies sensory or neuro deficits. He is a regular patient and the [facility] [place] was told by MD Wong during a clinic visit that he was too high risk to have EGD and colonoscopy to remain on DOAC and required a herparin drip, additionally he was told that he needed to report to inpatient in order to have a transfusion. Meds/Allgy Home Medications Ambulatory Orders Medication Instructions Recorded Confirmed pantoprazole 40 mg tablet,delayed 40 mg PO DAILY gerd #90 tabs 02/21/24 03/16/24 release (Protonix) peg 3350-electrolytes 236 240 ml PO Q10M #4,000 mL 03/09/24 03/16/24 gram-22.74 gram-6.74 gram-5.86 gram solution (Golytely) dabigatran etexilate 150 mg 150 mg PO BID 03/13/24 03/16/24 capsule (Pradaxa) docusate sodium 100 mg capsule 100 mg PO QDAY #60 caps 03/14/24 03/16/24 ferrous gluconate 324 mg (38 mg 324 mg PO QDAY #30 tabs 03/14/24 03/16/24 iron) tablet Allergies Allergies Allergy/AdvReac Type Severity Reaction Status Date / Time No Known Drug Allergies Allergy Verified 03/16/24 11:20 [facility] Medical History Medical History Pulmonary embolism Anemia Left leg DVT Iron deficiency anemia GERD (gastroesophageal reflux disease) Surgical History Surgical History History of neck surgery childhood cyst on neck Social History Social History Smoking Status: Never smoker Second hand tobacco smoke exposure: No Do you dip or chew tobacco?: No Do you vape?: No Living arrangement: At home Living Condition: With family Relationship: Level: Independent Do you feel safe in your home environment?: Yes Suffered physical, verbal, emotional, or financial abuse?: No ETOH Use: None Frequency: Occasional Substance Use: denies use POLST Patient has POLST: No Review of Systems Grossly normal since his Status of ROS: 10 or more systems reviewed and unremarkable except as noted in history and below Constitutional Denies: Fatigue, Fever or Night sweats Cardiovascular Reports: Syncope (02/03/24 in ED during JVD/PE event); Denies: chest pain, palpitations, edema, lightheadedness or shortness of breath with exertion Respiratory Denies: Shortness of breath, Pain on inspiration, Coughing up blood, SOB at rest (No episodes since 02/03/24) or SOB with exertion Gastrointestinal Denies: Abdominal pain, Nausea, Vomiting, [place] blood emesis, Coffee grounds in vomit, Rectal bleeding or Rectal pain Integumentary/Breast Denies: Sores or New lesion Neurological Denies: Headache or General weakness Endocrine Denies: Fatigue Hematologic/Lymphatic Reports: Anemia and Blood clots (DVT Dx on 02/03/24) Prior Level of Functionality: Fully functional Exam Exam grossly normal physical exam Constitutional normal general appearance and no apparent distress [facility] normocephalic Eyes PERRL Neck/C-Spine visual inspection normal, trachea midline, cervical spine nontender, cervical full ROM noted and thyroid normal Lymph no lymphadenopathy noted Chest inspection of chest normal and palpation of chest normal Respiratory breath sounds equal bilaterally, normal respiratory effort and clear to auscultation bilaterally Cardiovascular normal heart rate noted, regular rhythm noted, no gallop, no rub, no murmur and no JVD Gastrointestinal abdomen normal to inspection, abdomen soft to palpation and nondistended Back/Pelvis spine normal to inspection Extremities normal to inspection and full ROM Neurology no movement abnormality noted, no focal motor deficit noted, no sensory deficits noted and GCS 15 Psychiatry mental status grossly normal, oriented x3, thought process normal and cooperative Skin skin color normal, no rash, no lesions, no ecchymosis noted, no wounds and no lacerations Conclusion/Plan Problem List (1) Anemia: Plan: * Hgb 8.2 / Hct 28.7% * Was taking DOAC at home. MD Bass would like him on a heparin drip for upcoming EGD and colonoscopy * Current PT 14.8 / INR 1.4 * Inpatient Rx of Heparin Sodium 18 unit/kg/hr IV Qualifiers: Anemia type: unspecified type Qualified Code(s): D64.9 - Anemia, unspecified (2) DVT (deep venous thrombosis): Plan: * Hx of PE secondary to DVT on 02/03/24 * Currently on Heparin drip per protocol * Therapeutic VTE protocol per pharmacy Qualifiers: Affected thrombotic vein of extremity: iliac Chronicity: acute DVT location: lower extremity Laterality: left Qualified Code(s): I82.422 - Acute embolism and thrombosis of left iliac vein (3) Pulmonary embolism: Plan: * H of PE secondary to DVT on 02/02/25 * Currently on Heparin drip per protocol * therapeutic VTE protocol per pharmacy Qualifiers: Acute cor pulmonale presence: without acute cor pulmonale Chronicity: a cute Pulmonary embolism type: unspecified Qualified Code(s): I26.99 - Other pulmonary embolism without acute cor pulmonale Lab Results Lab results reviewed: Yes 03/16/24 15:56 03/16/24 15:56 Diagnostic Imaging Results Diagnostic Imaging Results: positive Other Diagnostic Imaging Results Comments: CTA abdoment and pelvis was perfomed today at 16:11 - results are pending Core Measures Anticipated LOS I expect patient to be DC'd or transferred within 96 hours.: Yes DVT/VTE - Prophylaxis VTE/DVT Device ordered at admit?: Yes
[2024-03-16] MEDS: PANTOPRAZOLE 40 MG TABLET PO SCH (20:58)
[2024-03-17 05:45] LABS: BASOPHILS # (AUTO) 0.1 10^3/uL (0.0-0.1); BASOPHILS % (AUTO) 1.2 %; EOSINOPHILS # (AUTO) 0.4 10^3/uL (0.0-0.7); EOSINOPHILS % (AUTO) 9.5 %; HCT - HEMATOCRIT 26.6 % (42.0-52.0); HGB - HEMOGLOBIN 7.5 g/dL (14.0-18.0); LYMPHOCYTES # (AUTO) 1.9 10^3/uL (1.5-3.5); LYMPHOCYTES % (AUTO) 43.9 %; MEAN CORPUSCULAR HEMOGLOBIN 24.7 pg (27.0-31.0); MEAN CORPUSCULAR HGB CONC 28.2 g/dL (32.0-36.0); MEAN CORPUSCULAR VOLUME 87.5 fL (80.0-94.0); MEAN PLATELET VOLUME 11.2 fL (7.4-11.4); MONOCYTES # (AUTO) 0.3 10^3/uL (0.0-1.0); MONOCYTES % (AUTO) 7.2 %; NEUTROPHILS # (AUTO) 1.7 10^3/uL (1.5-6.6); PLT - PLATELET COUNT 289 10^3/uL (130-450); RED BLOOD COUNT 3.04 10^6/uL (4.70-6.10); RED CELL DISTRIBUTION WIDTH 20.9 % (12.0-15.0); WHITE BLOOD COUNT 4.3 x10^3/uL (4.8-10.8)
[2024-03-17 05:56] LABS: SLIDE REVIEW? Indicated
[2024-03-17 06:02] LABS: CREATININE 1.1 mg/dL (0.6-1.3); POTASSIUM 3.7 mmol/L (3.5-4.5)
[2024-03-17 06:31] LABS: PLATELET ESTIMATE, MANUAL NORMAL (130-450,000) (NORMAL); PLATELET MORPHOLOGY NORMAL APPEARANCE (NORMAL)
[2024-03-17] MEDS ORDERED: PANTOPRAZOLE 40 MG TABLET PO SCH (09:00)
[2024-03-17] MEDS: FERROUS GLUCONATE 324 MG TABLET PO SCH (09:03)
[2024-03-17 09:33] LABS: HCT - HEMATOCRIT 27.7 % (42.0-52.0); HGB - HEMOGLOBIN 7.9 g/dL (14.0-18.0)
--- NOTE | 2024-03-17 10:46 | CT Report ---
PROCEDURE: CT Angio Abdomen/Pelvis INDICATIONS: Anemia, rule out lower GI bleed CONTRAST: 100 mL Omnipaque 300 TECHNIQUE: After the administration of intravenous contrast, 2.5 mm thick sections acquired from the diaphragm t o the symphysis. 10 mm maximum-intensity projection (MIP) reformats were then acquired. For radiati on dose reduction, the following was used: automated exposure control, adjustment of mA and/or kV ac cording to patient size. COMPARISON: CT chest angiogram 02/03/2024 FINDINGS: Image quality: Excellent. VESSELS: Lower thorax: Moderate type III paraesophageal hernia (4/33). Mild cardiomegaly. Peritoneum: No pneumoperitoneum or ascites. Bones: Subacute, healing, left 3rd-6th anterior rib fractures. Liver: Normal in size and contour. Gallbladder: No wall thickening, stones, or pericholecystic edema. Biliary tree: No intrahepatic or extrahepatic biliary duct dilatation. Pancreas: No acute abnormality. Spleen: Normal in size. Kidneys: Symmetric enhancement without hydronephrosis or obstructive urolithiasis. Adrenals: No nodularity. Bladder: No abnormal wall thickening. : No acute abnormality. Stomach: No focal masses or abnormal distension. Bowel: Normal bowel wall diameter without obstruction. Appendix within normal limits (15/177). Scatte red colonic diverticulosis. Lymph Nodes: No retroperitoneal, mesenteric, or inguinal lymphadenopathy. Vascular: Hypodensity of the blood pool, which can be seen with anemia. No abdominal aortic intramura l hematoma, aneurysm, or dissection. Celiac: patent Superior mesenteric: patent Inferior mesenteric: patent Renal: patent Common iliac: patent External iliac: patent Internal iliac arteries: patent Main portal vein: no large filling defect Superior mesenteric vein: no large filling defect Soft tissues: No acute abnormality. IMPRESSION: 1.No CT evidence of an acute gastrointestinal bleeding source. 2.Moderate type III paraesophageal hernia. 3.Subacute, healing left 3rd-6th anterior rib fractures. Reviewed by: Perez Singh MD on 03/17/2024 10:45 AM [facility] Approved by: Perez Singh MD on 03/17/2024 10:45 AM [facility] Station ID: [id number]
[2024-03-17] MEDS: FERRIC GLUCONATE 125 MG in SODIUM CHLORIDE 0.9% 100ML 100 ML IV ONE (10:59)
--- NOTE | 2024-03-17 11:20 | PHARMACY PROGRESS NOTE ---
Best Possible Medication History Admit Date and Time: 03/16/24 [id number] Home Medications Medication Instructions Recorded Confirmed Type peg 3350-electrolytes 236 240 ml PO Q10M #4,000 mL 03/09/24 03/17/24 Rx gram-22.74 gram-6.74 gram-5.86 gram solution (Golytely) dabigatran etexilate 150 mg 150 mg PO BID 03/13/24 03/17/24 History capsule (Pradaxa) docusate sodium 100 mg capsule 100 mg PO QDAY #60 caps 03/14/24 03/17/24 Rx ferrous gluconate 324 mg (38 mg 324 mg PO QDAY #30 tabs 03/14/24 03/17/24 Rx iron) tablet pantoprazole 40 mg tablet,delayed 40 mg PO DAILY PM gerd 03/17/24 03/17/24 History release (Protonix) Processed by: Pharmacy Medications reviewed in ED?: Yes Medication History completed: Yes Patient Interview: Completed Secondary Source(s): Pharmacy records and Insurance records [facility] Statement: As the person ultimately responsible for medication therapy, providers are able to order a medication from an existing home medication list in [facility] via the "Reconcile Routine" prior to Confirmation of that medication by application support technician. Such practice is discouraged except when the physician, in their clinical judgment, deems that a medical need exists for a medication without regard to previous use.
[2024-03-17] MEDS: PEG 3350/NA SULF,BICARB,CL/KCL 4,000 ML BOTTLE PO ONE (11:27)
--- NOTE | 2024-03-17 16:26 | PROVIDER PROGRESS NOTE ---
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 He is here to have a heparin drip for his EGD and colonoscopy due to high risk of bleed on home DOAC secondary to anemia. He has no complaints initially and is feeling as good as he did initially. He is fully alert and oriented, denies all pain, denies all shortness of breath, and is awaiting the procedures that are scheduled for tomorrow (03/18/24). Current Medications Current Medications Current Medications: Current Medications Generic Name Dose Route Start Last Admin Trade Name Freq PRN Reason Stop Dose Admin Acetaminophen 650 mg 03/16/24 16:01 Acetaminophen 325 Mg Tablet PO Q4HR PRN Pain 1 to 4, or Fever Ferrous Gluconate 324 mg 03/17/24 09:00 03/17/24 09:03 Ferrous Gluconate 324 Mg Tablet PO 324 mg DAILY HARI Administration Heparin Sodium (Porcine) 2,000 - 3,000 unit 03/16/24 16:01 Heparin 1,000 Unit/Ml Vial IVP Q6H PRN aPTT <50 Protocol Heparin Sodium/Dextrose 25,000 unit in 500 mls @ 38.374 mls/hr 03/16/24 16:01 03/17/24 09:32 Heparin Sodium/Dextrose IV 15 unit/kg/hr .Q13H2M HARI 31.98 mls/hr Titration Protocol 18 UNIT/KG/HR Ondansetron HCl 4 mg 03/16/24 16:01 Ondansetron Odt 4 Mg Tablet TL Q6HR PRN Nausea / Vomiting Ondansetron HCl 4 mg 03/16/24 16:01 Ondansetron 4 Mg/2 Ml Vial IVP Q6HR PRN Nausea / Vomiting Pantoprazole Sodium 40 mg 03/16/24 21:00 03/16/24 20:58 Pantoprazole 40 Mg Tablet PO 40 mg HS HARI Administration Sodium Chloride 10 ml 03/16/24 16:01 Sodium Chloride Flush 0.9% 10 Ml Syringe IVP PRN PRN NEEDED PER PROVIDER ORDERS Sodium Chloride 10 ml 03/16/24 17:00 03/17/24 09:03 Sodium Chloride Flush 0.9% 10 Ml Syringe IVP Not Given 0100,0900,1700 [facility] Objective Vital Signs/Intake & Output Reviewed Vital Signs: Yes Vital Signs: Vital Signs x48h Temp Pulse Resp BP BP Pulse Ox 03/17/24 13:46 36.6 C 99 18 136/93 H 99 03/17/24 08:36 36.6 C 90 18 155/97 H 97 Intake & Output: Intake & Output 03/14/24 03/15/24 03/16/24 03/17/24 23:59 23:59 23:59 23:59 Intake Total 140 / 140 1633 / 1633 Balance 140 / 140 1633 / 1633 Weight (kg) 106.594 kg Objective General Appearance: positive No acute distress and Alert Eyes Bilateral: positive Normal inspection and PERRL ENT: positive ENT inspection nml Neck: positive Nml inspection Respiratory: positive Chest non-tender, No respiratory distress and Breath sounds nml Cardiovascular: positive Regular rate & rhythm Abdomen: positive Non-tender and Other (experiencing loose stools secondary to Golytely bowel prep) Skin: positive Color nml and Warm Neurologic/Psychiatric: positive Oriented x3 Lab Results 03/17/24 09:27 03/17/24 05:20 Other Labs: Lab Results x24hrs 03/17/24 03/17/24 03/17/24 Range/Units 09:27 07:13 05:20 WBC (4.8-10.8) x10^3/uL RBC (4.70-6.10) 10^6/uL Hgb 7.9 L (14.0-18.0) g/dL Hct 27.7 L (42.0-52.0) % MCV (80.0-94.0) fL MCH (27.0-31.0) pg MCHC (32.0-36.0) g/dL RDW (12.0-15.0) % Plt Count (130-450) 10^3/uL MPV (7.4-11.4) fL Neut # (Auto) (1.5-6.6) 10^3/uL Lymph # (Auto) (1.5-3.5) 10^3/uL [place] # (Auto) (0.0-1.0) 10^3/uL Eos # (Auto) (0.0-0.7) 10^3/uL Baso # (Auto) (0.0-0.1) 10^3/uL Absolute Nucleated RBC x10^3/uL Nucleated RBC % /100WBC Manual Slide Review Platelet Estimate (NORMAL) Platelet Morphology (NORMAL) RBC Morph Micro Appear 1+ OVALOCYTES (NORMAL) PT (9.9-12.6) secs INR (0.8-1.2) APTT 101.0 H* (24.9-33.3) secs Sodium 140 (135-145) mmol/L Potassium 3.7 (3.5-4.5) mmol/L Chloride 110 (101-111) mmol/L Carbon Dioxide 25 (21-32) mmol/L Anion Gap 5.0 L (6-13) BUN 12 (6-20) mg/dL Creatinine 1.1 (0.6-1.3) mg/dL Estimated GFR (MDRD) 72 L (>89) Glucose 93 (74-104) mg/dL Calcium 9.0 (8.5-10.3) mg/dL Total Bilirubin (0.2-1.0) mg/dL AST (10-42) IU/L ALT (10-60) IU/L Alkaline Phosphatase (42-121) IU/L Total Protein (6.4-8.9) g/dL Albumin (3.2-5.5) g/dL Globulin (2.1-4.2) g/dL Albumin/Globulin Ratio (1.0-2.2) Blood Type Antibody Screen Crossmatch IS Only 03/17/24 03/17/24 03/16/24 Range/Units 05:20 05:20 23:54 WBC 4.3 L (4.8-10.8) x10^3/uL RBC 3.04 L (4.70-6.10) 10^6/uL Hgb 7.5 L (14.0-18.0) g/dL Hct 26.6 L (42.0-52.0) % MCV 87.5 (80.0-94.0) fL MCH 24.7 L (27.0-31.0) pg MCHC 28.2 L (32.0-36.0) g/dL RDW 20.9 H (12.0-15.0) % Plt Count 289 (130-450) 10^3/uL MPV 11.2 (7.4-11.4) fL Neut # (Auto) 1.7 (1.5-6.6) 10^3/uL Lymph # (Auto) 1.9 (1.5-3.5) 10^3/uL [place] # (Auto) 0.3 (0.0-1.0) 10^3/uL Eos # (Auto) 0.4 (0.0-0.7) 10^3/uL Baso # (Auto) 0.1 (0.0-0.1) 10^3/uL Absolute Nucleated RBC 0.00 x10^3/uL Nucleated RBC % 0.0 /100WBC Manual Slide Review Indicated Platelet Estimate NORMAL (130-450,000) (NORMAL) Platelet Morphology NORMAL APPEARANCE (NORMAL) RBC Morph Micro Appear 2+ HYPOCHROMASIA 1+ ANISOCYTOSIS (NORMAL) PT (9.9-12.6) secs INR (0.8-1.2) APTT 139.0 H* (24.9-33.3) secs Sodium (135-145) mmol/L Potassium (3.5-4.5) mmol/L Chloride (101-111) mmol/L Carbon Dioxide (21-32) mmol/L Anion Gap (6-13) BUN (6-20) mg/dL Creatinine (0.6-1.3) mg/dL Estimated GFR (MDRD) (>89) Glucose (74-104) mg/dL Calcium (8.5-10.3) mg/dL Total Bilirubin (0.2-1.0) mg/dL AST (10-42) IU/L ALT (10-60) IU/L Alkaline Phosphatase (42-121) IU/L Total Protein (6.4-8.9) g/dL Albumin (3.2-5.5) g/dL Globulin (2.1-4.2) g/dL Albumin/Globulin Ratio (1.0-2.2) Blood Type Antibody Screen Crossmatch IS Only 03/16/24 03/16/24 03/16/24 Range/Units 16:13 15:56 15:56 WBC (4.8-10.8) x10^3/uL RBC (4.70-6.10) 10^6/uL Hgb (14.0-18.0) g/dL Hct (42.0-52.0) % MCV (80.0-94.0) fL MCH (27.0-31.0) pg MCHC (32.0-36.0) g/dL RDW (12.0-15.0) % Plt Count (130-450) 10^3/uL MPV (7.4-11.4) fL Neut # (Auto) (1.5-6.6) 10^3/uL Lymph # (Auto) (1.5-3.5) 10^3/uL [place] # (Auto) (0.0-1.0) 10^3/uL Eos # (Auto) (0.0-0.7) 10^3/uL Baso # (Auto) (0.0-0.1) 10^3/uL Absolute Nucleated RBC x10^3/uL Nucleated RBC % /100WBC Manual Slide Review Platelet Estimate (NORMAL) Platelet Morphology (NORMAL) RBC Morph Micro Appear 2+ POIKILOCYTOSIS 2+ HYPOCHROMASIA (NORMAL) PT 14.8 H (9.9-12.6) secs INR 1.4 H (0.8-1.2) APTT 40.1 H (24.9-33.3) secs Sodium 140 (135-145) mmol/L Potassium 3.6 (3.5-4.5) mmol/L Chloride 108 (101-111) mmol/L Carbon Dioxide 25 (21-32) mmol/L Anion Gap 7.0 (6-13) BUN 13 (6-20) mg/dL Creatinine 1.4 H (0.6-1.3) mg/dL Estimated GFR (MDRD) 55 L (>89) Glucose 135 H (74-104) mg/dL Calcium 9.9 (8.5-10.3) mg/dL Total Bilirubin 0.4 (0.2-1.0) mg/dL AST 13 (10-42) IU/L ALT 13 (10-60) IU/L Alkaline Phosphatase 48 (42-121) IU/L Total Protein 6.7 (6.4-8.9) g/dL Albumin 4.3 (3.2-5.5) g/dL Globulin 2.4 (2.1-4.2) g/dL Albumin/Globulin Ratio 1.8 (1.0-2.2) Blood Type O POSITIVE Antibody Screen NEGATIVE Crossmatch IS Only See Detail 03/16/24 Range/Units 15:56 WBC 5.1 (4.8-10.8) x10^3/uL RBC 3.33 L (4.70-6.10) 10^6/uL Hgb 8.2 L (14.0-18.0) g/dL Hct 28.7 L (42.0-52.0) % MCV 86.2 (80.0-94.0) fL MCH 24.6 L (27.0-31.0) pg MCHC 28.6 L (32.0-36.0) g/dL RDW 20.8 H (12.0-15.0) % Plt Count 346 (130-450) 10^3/uL MPV 10.5 (7.4-11.4) fL Neut # (Auto) 2.9 (1.5-6.6) 10^3/uL Lymph # (Auto) 1.6 (1.5-3.5) 10^3/uL [place] # (Auto) 0.3 (0.0-1.0) 10^3/uL Eos # (Auto) 0.3 (0.0-0.7) 10^3/uL Baso # (Auto) 0.0 (0.0-0.1) 10^3/uL Absolute Nucleated RBC 0.00 x10^3/uL Nucleated RBC % 0.0 /100WBC Manual Slide Review Indicated Platelet Estimate NORMAL (130-450,000) (NORMAL) Platelet Morphology NORMAL APPEARANCE (NORMAL) RBC Morph Micro Appear 2+ ANISOCYTOSIS (NORMAL) PT (9.9-12.6) secs INR (0.8-1.2) APTT (24.9-33.3) secs Sodium (135-145) mmol/L Potassium (3.5-4.5) mmol/L Chloride (101-111) mmol/L Carbon Dioxide (21-32) mmol/L Anion Gap (6-13) BUN (6-20) mg/dL Creatinine (0.6-1.3) mg/dL Estimated GFR (MDRD) (>89) Glucose (74-104) mg/dL Calcium (8.5-10.3) mg/dL Total Bilirubin (0.2-1.0) mg/dL AST (10-42) IU/L ALT (10-60) IU/L Alkaline Phosphatase (42-121) IU/L Total Protein (6.4-8.9) g/dL Albumin (3.2-5.5) g/dL Globulin (2.1-4.2) g/dL Albumin/Globulin Ratio (1.0-2.2) Blood Type Antibody Screen Crossmatch IS Only Assessment/Plan Problem List (1) Anemia: Impression: - normocytic anenmia being addressed with iron supplement - Ferrous Gluconate 324mg PO daily - hgb and hct remain low but stable - Patient is awaiting endoscope EGD and colonoscopy to evaluate for bleeds. Qualifiers: Anemia type: unspecified type Qualified Code(s): D64.9 - Anemia, unspecified (2) DVT (deep venous thrombosis): Impression: - Home DOAC dabigatran etexilare replaced with inpatient heparin drip titrated per pharmacy protocols - Current APTT 177 - Patient denies any leg pain and/or stiffness and shows no physical signs of DVT Qualifiers: Affected thrombotic vein of extremity: iliac Chronicity: acute DVT location: lower extremity Laterality: left Qualified Code(s): I82.422 - Acute embolism and thrombosis of left iliac vein Documented by User: Priyank Hutchins DNP 03/17/24 17:17 Objective Lab Results 03/17/24 09:27 03/17/24 05:20 Assessment/Plan Problem List (1) Anemia: Qualifiers: Anemia type: unspecified type Qualified Code(s): D64.9 - Anemia, unspecified (2) DVT (deep venous thrombosis): Qualifiers: Affected thrombotic vein of extremity: iliac Chronicity: acute DVT location: lower extremity Laterality: left Qualified Code(s): I82.422 - Acute embolism and thrombosis of left iliac vein
--- NOTE | 2024-03-17 16:45 | PROVIDER PROGRESS NOTE ---
Subjective General Admit Date: 03/16/24 Other Other Information/Narrative: Freddy is a 43yoM referred to me for endoscopic evaluation in setting of severe persistent anemia as well as DVT/PE. He had essentially no prior health concerns until he developed COVID in July 2023. His weakness and SOB were long lasting, and despite the COVID resolving, progressed to being dizzy even at rest. He was admitted to the hospital with a hgb of 3.1 in October. He underwe nt and EGD showing severe LA Grade 4 esophagitis, and was started on Protonix 40mg daily, which he has taken since. It controls his heartburn sx very well, he reports " can eat anything I want now even spicy things." However the anemia has been refractory and requiring iron infusions in the [facility] clinic. Recent iron infusion brought hgb from 6 to 8, but last week was back to 7.1. On Feb 01 he developed LLE swelling, and was found to have large bilateral PEs. He is now on dabigatran. He has never had a colonoscopy. He denies blood in his stool. Denies weight loss. Denies abdominal or anorectal pain, or change in stool caliber or pattern. No cancers in family. He is now admitted to the hospital for a heparin gtt and window for his endoscopy procedures, as he is not cleared to be holding his DOAC at this time. He has no acute complaints or changes during hospitalization. Review of Systems Status of ROS: 10 or more systems reviewed and unremarkable except as noted in history and below Exam Constitutional normal general appearance and no apparent distress Respiratory normal respiratory effort Cardiovascular normal heart rate noted Gastrointestinal abdomen normal to inspection Extremities Left leg swelling Psychiatry mental status grossly normal and oriented x3 Skin skin color abnormal (pale) Image 02/03/2024 PROCEDURE: CT Angio Chest INDICATIONS: DVT, with syncope CONTRAST: 80ml omni 300 TECHNIQUE: After the administration of intravenous contrast, 2 mm axial images were acquired from the pulmonary apices to the posterior costophrenic angles during the arterial phase. In addition, 1 mm lung kernel and 5 mm soft tissue kernel reconstructions were performed. 3-dimensional coronal oblique maximum intensity projection (MIP) reformats, 8 mm axial MIP, and 5 mm coronal and sagittal MPR reformats were then performed through the thorax. For radiation dose reduction, the following was used: automated exposure control, adjustment of mA and/or kV according to patient size. COMPARISON: None. FINDINGS: Image quality: Excellent. Large vessels: Extensive bilateral pulmonary emboli including distal main pulmonary artery clot bilaterally. On the left clot extends into the left upper lobe pulmonary artery and left lower lobe pulmonary artery into multiple nasal segments. On the right, clot extends into the right middle lobe pulmonary artery and right lower lobe pulmonary artery and multiple basilar branches. Lungs and pleura: No consolidation. No pleural effusions. No pneumothorax. No suspicious pulmonary nodules which require follow up. Mediastinum: Heart size is mildly enlarged. There is no definite evidence of reversal of the RV LV ratio. No pericardial effusion. Moderate hiatal hernia.. No mediastinal adenopathy by size criteria. Chest wall and lower neck: Thyroid is unremarkable. No axillary or supraclavicular adenopathy by size. Bones: No aggressive osseous abnormality. Upper Abdomen: Unremarkable. IMPRESSION: Large volume pulmonary emboli without clear evidence of right heart strain. Mild cardiomegaly. Moderate hiatal hernia. Comment: Consider echo to evaluate presence or absence of right heart strain. Above discussed with Pedro Kwon MD at the time of dictation on 02/02/2025 at 1704 hours. Reviewed by: Aguilar Du MD on 02/03/2024 5:05 PM PST 03/17/2024 PROCEDURE: CT Angio Abdomen/Pelvis INDICATIONS: Anemia, rule out lower GI bleed CONTRAST: 100 mL Omnipaque 300 TECHNIQUE: After the administration of intravenous contrast, 2.5 mm thick sections acquired from the diaphragm to the symphysis. 10 mm maximum-intensity projection (MIP) reformats were then acquired. For radiation dose reduction, the following was used: automated exposure control, adjustment of mA and/or kV according to patient size. COMPARISON: CT chest angiogram 02/03/2024 FINDINGS: Image quality: Excellent. VESSELS: Lower thorax: Moderate type III paraesophageal hernia (4/33). Mild cardiomegaly. Peritoneum: No pneumoperitoneum or ascites. Bones: Subacute, healing, left 3rd-6th anterior rib fractures. Liver: Normal in size and contour. Gallbladder: No wall thickening, stones, or pericholecystic edema. Biliary tree: No intrahepatic or extrahepatic biliary duct dilatation. Pancreas: No acute abnormality. Spleen: Normal in size. Kidneys: Symmetric enhancement without hydronephrosis or obstructive ur olithiasis. Adrenals: No nodularity. Bladder: No abnormal wall thickening. : No acute abnormality. Stomach: No focal masses or abnormal distension. Bowel: Normal bowel wall diameter without obstruction. Appendix within normal limits (15/177). Scattered colonic diverticulosis. Lymph Nodes: No retroperitoneal, mesenteric, or inguinal lymphadenopathy. Vascular: Hypodensity of the blood pool, which can be seen with anemia. No abdominal aortic intramural hematoma, aneurysm, or dissection. Celiac: patent Superior mesenteric: patent Inferior mesenteric: patent Renal: patent Common iliac: patent External iliac: patent Internal iliac arteries: patent Main portal vein: no large filling defect Superior mesenteric vein: no large filling defect Soft tissues: No acute abnormality. IMPRESSION: 1.No CT evidence of an acute gastrointestinal bleeding source. 2.Moderate type III paraesophageal hernia. 3.Subacute, healing left 3rd-6th anterior rib fractures. Reviewed by: Perez Singh MD on 03/17/2024 10:45 AM PST Impression/Plan Problem List (1) Anemia: Plan: 43yoM with severe anemia and large bilateral PEs, underlying cause not yet identified and malignancy is a concern. Did have severe esophagitis in Oct 2023 and has started PPI with symptomatic improvement, however active bleeding was not seen on EGD. Has never had Colonoscopy and denies blood in stool. Is now on DOAC for PE. The indications, alternatives, and risks of endoscopy, including but not limited to perforation requiring operative repair, bleeding requiring further intervention, and missed lesions, were discussed. The required conscious sedation was discussed along with its risks (MA, PE, CVA, ). The patient wishes to proceed with endoscopy. - Scheduled for upper and lower endoscopy to evaluate for malignancy in setting of anemia + hypercoaguability. - bowel prep as inpatient today, clears then NPO at midnight - SW consult as patient states his insurance is running out the end of this month due to being out of work with these acute health issues Qualifiers: Anemia type: unspecified type Qualified Code(s): D64.9 - Anemia, unspecified (2) Pulmonary embolism: Plan: Last dose DOAC Saturday PM, admitted on Saturday for heparin drip and window, as he is not cleared to hold DOAC this early in his PE treatment. - Hold hepatin gtt 2 hrs before endoscopy Qualifiers: Acute cor pulmonale presence: without acute cor pulmonale Chronicity: acute Pulmonary embolism type: unspecified Qualified Code(s): I26.99 - Other pulmonary embolism without acute cor pulmonale (3) Paraesophageal hernia: Plan: CT abd/pel completed on admission to r/u active abdominal bleed and evaluate for possible malignancy. Type 3 paraesophageal hernia with 1/3 to 1/2 of stomach herniated above diaphragm. Will evaluate further with EGD tomorrow. If no malignancy identified, will discuss surgical repair with patient. (4) Rib fractures: Plan: Healing rib fractures (left #3-6) seen on CT. C/w his syncopal [place] s/p discharge in January. Carolin Wong DO, [facility] General Surgeon, [place]
[2024-03-17 17:17] LABS: HCT - HEMATOCRIT 27.8 % (42.0-52.0); HGB - HEMOGLOBIN 7.9 g/dL (14.0-18.0)
[2024-03-18 01:34] LABS: HCT - HEMATOCRIT 26.4 % (42.0-52.0); HGB - HEMOGLOBIN 7.7 g/dL (14.0-18.0)
[2024-03-18 06:03] LABS: BASOPHILS % (AUTO) 0.9 %; EOSINOPHILS # (AUTO) 0.3 10^3/uL (0.0-0.7); EOSINOPHILS % (AUTO) 8.3 %; HCT - HEMATOCRIT 28.2 % (42.0-52.0); HGB - HEMOGLOBIN 7.8 g/dL (14.0-18.0); LYMPHOCYTES # (AUTO) 1.3 10^3/uL (1.5-3.5); LYMPHOCYTES % (AUTO) 38.3 %; MEAN CORPUSCULAR HEMOGLOBIN 24.1 pg (27.0-31.0); MEAN CORPUSCULAR HGB CONC 27.7 g/dL (32.0-36.0); MEAN CORPUSCULAR VOLUME 87.3 fL (80.0-94.0); MEAN PLATELET VOLUME 10.5 fL (7.4-11.4); MONOCYTES # (AUTO) 0.3 10^3/uL (0.0-1.0); MONOCYTES % (AUTO) 7.7 %; NEUTROPHILS # (AUTO) 1.5 10^3/uL (1.5-6.6); NEUTROPHILS % (AUTO) 44.8 %; PLT - PLATELET COUNT 298 10^3/uL (130-450); RED BLOOD COUNT 3.23 10^6/uL (4.70-6.10); RED CELL DISTRIBUTION WIDTH 20.8 % (12.0-15.0); WHITE BLOOD COUNT 3.4 x10^3/uL (4.8-10.8)
[2024-03-18 06:09] LABS: SLIDE REVIEW? Indicated
[2024-03-18 06:16] LABS: CALCIUM 9.3 mg/dL (8.5-10.3); CREATININE 1.1 mg/dL (0.6-1.3); POTASSIUM 3.6 mmol/L (3.5-4.5)
[2024-03-18 06:31] LABS: PLATELET ESTIMATE, MANUAL NORMAL (130-450,000) (NORMAL); PLATELET MORPHOLOGY NORMAL APPEARANCE (NORMAL)
[2024-03-18 09:05] LABS: HCT - HEMATOCRIT 26.9 % (42.0-52.0); HGB - HEMOGLOBIN 7.7 g/dL (14.0-18.0)
[2024-03-18] MEDS ORDERED: iohexoL-300 100 ML VIAL IVP ONE (10:00)
[2024-03-18] MEDS ORDERED: PROPOFOL 200 MG/20 ML VIAL IVP ONE (10:00)
[2024-03-18] MEDS ORDERED: PROPOFOL 500 MG/50 ML 500 MG/50 ML VIAL IV ONE (10:00)
[2024-03-18] MEDS ORDERED: ePHEDrine 50 MG/ML VIAL IVP ONE (10:00)
[2024-03-18] MEDS ORDERED: LIDOCAINE-MPF 2% 5 ML VIAL TD ONE (10:00)
[2024-03-18] MEDS ORDERED: MIDAZOLAM 2 MG/2 ML VIAL IVP ONE (10:00)
--- NOTE | 2024-03-18 10:03 | ANESTHESIA PROCEDURE NOTE ---
Pre-Anesthesia VS, & Labs Diagnosis Surgical Diagnosis:: anemia Procedure Procedure: EGD, colonoscopy Vitals Vital Signs: Temp Pulse Resp BP Pulse Ox 36.5 C 65 18 130/82 99 03/18/24 07:55 03/18/24 07:55 03/18/24 07:55 03/18/24 07:55 03/18/24 07:55 NPO NPO: >8 hours Lab Results Current Lab Results: Laboratory Tests 03/18/24 08:58: Hgb 7.7 L, Hct 26.9 L 03/18/24 05:43: RBC Morph Micro Appear 1+ OVALOCYTES, APTT 78.3 H, Sodium 141, Potassium 3.6, Chloride 109, Carbon Dioxide 26, Anion Gap 6.0, BUN 7, Creatinine 1.1, Estimated GFR (MDRD) 72 L, Glucose 93, Calcium 9.3 03/18/24 05:43: RBC Morph Micro Appear 1+ HYPOCHROMASIA 03/18/24 05:43: WBC 3.4 L, RBC 3.23 L, Hgb 7.8 L, Hct 28.2 L, MCV 87.3, MCH 24.1 L, MCHC 27.7 L, RDW 20.8 H, Plt Count 298, MPV 10.5, Neut # (Auto) 1.5, Lymph # (Auto) 1.3 L, [place] # (Auto) 0.3, Eos # (Auto) 0.3, Baso # (Auto) 0.0, Absolute Nucleated RBC 0.00, Nucleated RBC % 0.0, Manual Slide Review Indicated, Platelet Estimate NORMAL (130-450,000), Platelet Morphology NORMAL APPEARANCE, RBC Morph Micro Appear 1+ ANISOCYTOSIS 03/18/24 01:30: Hgb 7.7 L, Hct 26.4 L 03/17/24 22:01: APTT 88.8 H 03/17/24 17:04: Hgb 7.9 L, Hct 27.8 L 03/17/24 15:45: APTT 177.0 H* 03/17/24 09:27: Hgb 7.9 L, Hct 27.7 L 03/17/24 07:13: APTT 101.0 H* 03/17/24 05:20: RBC Morph Micro Appear 1+ OVALOCYTES, Sodium 140, Potassium 3.7, Chloride 110, Carbon Dioxide 25, Anion Gap 5.0 L, BUN 12, Creatinine 1.1, E stimated GFR (MDRD) 72 L, Glucose 93, Calcium 9.0 03/17/24 05:20: RBC Morph Micro Appear 2+ HYPOCHROMASIA 03/17/24 05:20: WBC 4.3 L, RBC 3.04 L, Hgb 7.5 L, Hct 26.6 L, MCV 87.5, MCH 24.7 L, MCHC 28.2 L, RDW 20.9 H, Plt Count 289, MPV 11.2, Neut # (Auto) 1.7, Lymph # (Auto) 1.9, [place] # (Auto) 0.3, Eos # (Auto) 0.4, Baso # (Auto) 0.1, Absolute Nucleated RBC 0.00, Nucleated RBC % 0.0, Manual Slide Review Indicated, Platelet Estimate NORMAL (130-450,000), Platelet Morphology NORMAL APPEARANCE, RBC Morph Micro Appear 1+ ANISOCYTOSIS 03/16/24 23:54: APTT 139.0 H* 03/16/24 16:13: PT 14.8 H, INR 1.4 H, APTT 40.1 H, Blood Type O POSITIVE, Antibody Screen NEGATIVE, Crossmatch IS Only See Detail 03/16/24 15:56: RBC Morph Micro Appear 2+ POIKILOCYTOSIS, Sodium 140, Potassium 3.6, Chloride 108, Carbon Dioxide 25, Anion Gap 7.0, BUN 13, Creatinine 1.4 H, E stimated GFR (MDRD) 55 L, Glucose 135 H, Calcium 9.9, Total Bilirubin 0.4, AST 13, ALT 13, Alkaline Phosphatase 48, Total Protein 6.7, Albumin 4.3, Globulin 2.4, Albumin/Globulin Ratio 1.8 03/16/24 15:56: RBC Morph Micro Appear 2+ HYPOCHROMASIA 03/16/24 15:56: WBC 5.1, RBC 3.33 L, Hgb 8.2 L, Hct 28.7 L, MCV 86.2, MCH 24.6 L , MCHC 28.6 L, RDW 20.8 H, Plt Count 346, MPV 10.5, Neut # (Auto) 2.9, Lymph # (Auto) 1.6, [place] # (Auto) 0.3, Eos # (Auto) 0.3, Baso # (Auto) 0.0, Absolute Nucleated RBC 0.00, Nucleated RBC % 0.0, Manual Slide Review Indicated, Platelet Estimate NORMAL (130-450,000), Platelet Morphology NORMAL APPEARANCE, RBC Morph Micro Appear 2+ ANISOCYTOSIS 03/18/24 08:58 03/18/24 05:43 Meds/Allgy Home Medications Ambulatory Orders Medication Instructions Recorded Confirmed peg 3350-electrolytes 236 240 ml PO Q10M #4,000 mL 03/09/24 03/17/24 gram-22.74 gram-6.74 gram-5.86 gram solution (Golytely) dabigatran etexilate 150 mg 150 mg PO BID 03/13/24 03/17/24 capsule (Pradaxa) docusate sodium 100 mg capsule 100 mg PO QDAY #60 caps 03/14/24 03/17/24 ferrous gluconate 324 mg (38 mg 324 mg PO QDAY #30 tabs 03/14/24 03/17/24 iron) tablet pantoprazole 40 mg tablet,delayed 40 mg PO DAILY PM gerd 03/17/24 03/17/24 release (Protonix) Allergies Allergies Allergy/AdvReac Type Severity Reaction Status Date / Time No Known Drug Allergies Allergy Verified 03/16/24 11:20 [facility] [place] Medical History Medical History (Updated 03/17/24 @ 16:52 by Carolin Wong DO) Pulmonary embolism Anemia Left leg DVT Iron deficiency anemia GERD (gastroesophageal reflux disease) Surgical History Surgical History History of neck surgery childhood cyst on neck Social History Social History Smoking Status: Never smoker Second hand tobacco smoke exposure: No Do you dip or chew tobacco?: No Do you vape?: No Living arrangement: At home Living Condition: With family Relationship: Level: Independent Do you feel safe in your home environment?: Yes Suffered physical, verbal, emotional, or financial abuse?: No ETOH Use: None Frequency: Occasional Substance Use: denies use POLST Patient has POLST: No Anesthesia Exam (Expanded) Exam General: Alert and Oriented x3 Dental: WNL Mouth Opening: Greater than 4 Fingerbreadths Mallampati classification: II Respiratory: Lungs clear Cardiovascular: Regular rate Plan Problem List (1) Anemia: Plan: 43yoM with severe anemia and large bilateral PEs, underlying cause not yet identified and malignancy is a concern. Did have severe esophagitis in Oct 2023 and has started PPI with symptomatic improvement, however active bleeding was not seen on EGD. Has never had Colonoscopy and denies blood in stool. Is now on DOAC for PE. The indications, alternatives, and risks of endoscopy, including but not limited to perforation requiring operative repair, bleeding requiring further intervention, and missed lesions, were discussed. The required conscious sedation was discussed along with its risks (NC, PE, CVA, ). The patient wishes to proceed with endoscopy. - Scheduled for upper and lower endoscopy to evaluate for malignancy in setting of anemia + hypercoaguability. - bowel prep as inpatient today, clears then NPO at midnight - SW consult as patient states his insurance is running out the end of this month due to being out of work with these acute health issues Qualifiers: Anemia type: unspecified type Qualified Code(s): D64.9 - Anemia, unspecified (2) DVT (deep venous thrombosis): Qualifiers: Affected thrombotic vein of extremity: iliac Chronicity: acute DVT location: lower extremity Laterality: left Qualified Code(s): I82.422 - Acute embolism and thrombosis of left iliac vein Plan Anesthesia Type: Total IV Consent for Procedure(s) Verified and Reviewed: Yes Code Status: Attempt Resuscitation ASA Classification ASA classification: 3-Severe systemic disease Is this case an emergency?: Yes
--- NOTE | 2024-03-18 10:27 | ANESTHESIA PROCEDURE NOTE ---
Pre-Anesthesia VS, & Labs Diagnosis Surgical Diagnosis:: anemia Procedure Procedure: EGD, colonoscopy Vitals Vital Signs: Temp Pulse Resp BP Pulse Ox 36.5 C 65 18 130/82 99 03/18/24 07:55 03/18/24 07:55 03/18/24 07:55 03/18/24 07:55 03/18/24 07:55 NPO NPO: Other (prep as directed, finished at 5am) Lab Results Current Lab Results: Laboratory Tests 03/18/24 08:58: Hgb 7.7 L, Hct 26.9 L 03/18/24 05:43: RBC Morph Micro Appear 1+ OVALOCYTES, APTT 78.3 H, Sodium 141, Potassium 3.6, Chloride 109, Carbon Dioxide 26, Anion Gap 6.0, BUN 7, Creatinine 1.1, Estimated GFR (MDRD) 72 L, Glucose 93, Calcium 9.3 03/18/24 05:43: RBC Morph Micro Appear 1+ HYPOCHROMASIA 03/18/24 05:43: WBC 3.4 L, RBC 3.23 L, Hgb 7.8 L, Hct 28.2 L, MCV 87.3, MCH 24.1 L, MCHC 27.7 L, RDW 20.8 H, Plt Count 298, MPV 10.5, Neut # (Auto) 1.5, Lymph # (Auto) 1.3 L, [place] # (Auto) 0.3, Eos # (Auto) 0.3, Baso # (Auto) 0.0, Absolute Nucleated RBC 0.00, Nucleated RBC % 0.0, Manual Slide Review Indicated, Platelet Estimate NORMAL (130-450,000), Platelet Morphology NORMAL APPEARANCE, RBC Morph Micro Appear 1+ ANISOCYTOSIS 03/18/24 01:30: Hgb 7.7 L, Hct 26.4 L 03/17/24 22:01: APTT 88.8 H 03/17/24 17:04: Hgb 7.9 L, Hct 27.8 L 03/17/24 15:45: APTT 177.0 H* 03/17/24 09:27: Hgb 7.9 L, Hct 27.7 L 03/17/24 07:13: APTT 101.0 H* 03/17/24 05:20: RBC Morph Micro Appear 1+ OVALOCYTES, Sodium 140, Potassium 3.7, Chloride 110, Carbon Dioxide 25, Anion Gap 5.0 L, BUN 12, Creatinine 1.1, E stimated GFR (MDRD) 72 L, Glucose 93, Calcium 9.0 03/17/24 05:20: RBC Morph Micro Appear 2+ HYPOCHROMASIA 03/17/24 05:20: WBC 4.3 L, RBC 3.04 L, Hgb 7.5 L, Hct 26.6 L, MCV 87.5, MCH 24.7 L, MCHC 28.2 L, RDW 20.9 H, Plt Count 289, MPV 11.2, Neut # (Auto) 1.7, Lymph # (Auto) 1.9, [place] # (Auto) 0.3, Eos # (Auto) 0.4, Baso # (Auto) 0.1, Absolute Nucleated RBC 0.00, Nucleated RBC % 0.0, Manual Slide Review Indicated, Platelet Estimate NORMAL (130-450,000), Platelet Morphology NORMAL APPEARANCE, RBC Morph Micro Appear 1+ ANISOCYTOSIS 03/16/24 23:54: APTT 139.0 H* 03/16/24 16:13: PT 14.8 H, INR 1.4 H, APTT 40.1 H, Blood Type O POSITIVE, Antibody Screen NEGATIVE, Crossmatch IS Only See Detail 03/16/24 15:56: RBC Morph Micro Appear 2+ POIKILOCYTOSIS, Sodium 140, Potassium 3.6, Chloride 108, Carbon Dioxide 25, Anion Gap 7.0, BUN 13, Creatinine 1.4 H, E stimated GFR (MDRD) 55 L, Glucose 135 H, Calcium 9.9, Total Bilirubin 0.4, AST 13, ALT 13, Alkaline Phosphatase 48, Total Protein 6.7, Albumin 4.3, Globulin 2.4, Albumin/Globulin Ratio 1.8 03/16/24 15:56: RBC Morph Micro Appear 2+ HYPOCHROMASIA 03/16/24 15:56: WBC 5.1, RBC 3.33 L, Hgb 8.2 L, Hct 28.7 L, MCV 86.2, MCH 24.6 L , MCHC 28.6 L, RDW 20.8 H, Plt Count 346, MPV 10.5, Neut # (Auto) 2.9, Lymph # (Auto) 1.6, [place] # (Auto) 0.3, Eos # (Auto) 0.3, Baso # (Auto) 0.0, Absolute Nucleated RBC 0.00, Nucleated RBC % 0.0, Manual Slide Review Indicated, Platelet Estimate NORMAL (130-450,000), Platelet Morphology NORMAL APPEARANCE, RBC Morph Micro Appear 2+ ANISOCYTOSIS 03/18/24 08:58 03/18/24 05:43 Meds/Allgy Home Medications Ambulatory Orders Medication Instructions Recorded Confirmed peg 3350-electrolytes 236 240 ml PO Q10M #4,000 mL 03/09/24 03/17/24 gram-22.74 gram-6.74 gram-5.86 gram solution (Golytely) dabigatran etexilate 150 mg 150 mg PO BID 03/13/24 03/17/24 capsule (Pradaxa) docusate sodium 100 mg capsule 100 mg PO QDAY #60 caps 03/14/24 03/17/24 ferrous gluconate 324 mg (38 mg 324 mg PO QDAY #30 tabs 03/14/24 03/17/24 iron) tablet pantoprazole 40 mg tablet,delayed 40 mg PO DAILY PM gerd 03/17/24 03/17/24 release (Protonix) Allergies Allergies Allergy/AdvReac Type Severity Reaction Status Date / Time No Known Drug Allergies Allergy Verified 03/16/24 11:20 [facility] Medical History Medical History (Updated 03/17/24 @ 16:52 by Carolin Wong DO) Pulmonary embolism Anemia Left leg DVT Iron deficiency anemia GERD (gastroesophageal reflux disease) Surgical History Surgical History History of neck surgery childhood cyst on neck Social History Social History Smoking Status: Never smoker Second hand tobacco smoke exposure: No Do you dip or chew tobacco?: No Do you vape?: No Living arrangement: At home Living Condition: With family Relationship: Level: Independent Do you feel safe in your home environment?: Yes Suffered physical, verbal, emotional, or financial abuse?: No ETOH Use: None Frequency: Occasional Substance Use: denies use POLST Patient has POLST: No Anesthesia Exam (Expanded) Exam Dental: WNL Plan Problem List (1) Anemia: Plan: 43yoM with severe anemia and large bilateral PEs, underlying cause not yet identified and malignancy is a concern. Did have severe esophagitis in Oct 2023 and has started PPI with symptomatic improvement, however active bleeding was not seen on EGD. Has never had Colonoscopy and denies blood in stool. Is now on DOAC for PE. The indications, alternatives, and risks of endoscopy, including but not limited to perforation requiring operative repair, bleeding requiring further intervention, and missed lesions, were discussed. The required conscious sedation was discussed along with its risks (AK, PE, CVA, ). The patient wishes to proceed with endoscopy. - Scheduled for upper and lower endoscopy to evaluate for malignancy in setting of anemia + hypercoaguability. - bowel prep as inpatient today, clears then NPO at midnight - SW consult as patient states his insurance is running out the end of this month due to being out of work with these acute health issues Qualifiers: Anemia type: unspecified type Qualified Code(s): D64.9 - Anemia, unspecified (2) DVT (deep venous thrombosis): Qualifiers: Affected thrombotic vein of extremity: iliac Chronicity: acute DVT location: lower extremity Laterality: left Qualified Code(s): I82.422 - Acute embolism and thrombosis of left iliac vein ASA Classification ASA classification: 3-Severe systemic disease Is this case an emergency?: Yes
--- NOTE | 2024-03-18 12:48 | PROVIDER PROGRESS NOTE ---
Subjective General Admit Date: 03/16/24 Procedure Date: 03/18/24 Post Op Days: 0 Procedure Performed: EGD/[place] Other Other Information/Narrative: To OR today for upper and lower endoscopy on heparin window. 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 This constellation of findings could certainly account for his prior bleeding and anemia, and visually is improving on his PPI + carafate therapy. (Antral gastritis is mild, no gastric ulcers. Duo normal.) Colonoscopy showed 3 polyps in the sigmoid, path pending. No active bleeding in colon. Review of Systems Status of ROS: 10 or more systems reviewed and unremarkable except as noted in history and below Exam Constitutional normal general appearance and no apparent distress Respiratory normal respiratory effort Cardiovascular normal heart rate noted Gastrointestinal abdomen normal to inspection Extremities Left leg swelling Psychiatry mental status grossly normal and oriented x3 Skin skin color abnormal (pale) Image 02/03/2024 PROCEDURE: CT Angio Chest INDICATIONS: DVT, with syncope CONTRAST: 80ml omni 300 TECHNIQUE: After the administration of intravenous contrast, 2 mm axial images were acquired from the pulmonary apices to the posterior costophrenic angles during the arterial phase. In addition, 1 mm lung kernel and 5 mm soft tissue kernel reconstructions were performed. 3-dimensional coronal oblique maximum intensity projection (MIP) reformats, 8 mm axial MIP, and 5 mm coronal and sagittal MPR reformats were then performed through the thorax. For radiation dose reduction, the following was used: automated exposure control, adjustment of mA and/or kV according to patient size. COMPARISON: None. FINDINGS: Image quality: Excellent. Large vessels: Extensive bilateral pulmonary emboli including distal main pulmonary artery clot bilaterally. On the left clot extends into the left upper lobe pulmonary artery and left lower lobe pulmonary artery into multiple nasal segments. On the right, clot extends into the right middle lobe pulmonary artery and right lower lobe pulmonary artery and multiple basilar branches. Lungs and pleura: No consolidation. No pleural effusions. No pneumothorax. No suspicious pulmonary nodules which require follow up. Mediastinum: Heart size is mildly enlarged. There is no definite evidence of reversal of the RV LV ratio. No pericardial effusion. Moderate hiatal hernia.. No mediastinal adenopathy by size criteria. Chest wall and lower neck: Thyroid is unremarkable. No axillary or supraclavicular adenopathy by size. Bones: No aggressive osseous abnormality. Upper Abdomen: Unremarkable. IMPRESSION: Large volume pulmonary emboli without clear evidence of right heart strain. Mild cardiomegaly. Moderate hiatal hernia. Comment: Consider echo to evaluate presence or absence of right heart strain. Above discussed with Pedro Kwon MD at the time of dictation on 02/02/2025 at 1704 hours. Reviewed by: Aguilar Du MD on 02/03/2024 5:05 PM PST 03/17/2024 PROCEDURE: CT Angio Abdomen/Pelvis INDICATIONS: Anemia, rule out lower GI bleed CONTRAST: 100 mL Omnipaque 300 TECHNIQUE: After the administration of intravenous contrast, 2.5 mm thick sections acquired from the diaphragm to the symphysis. 10 mm maximum-intensity projection (MIP) reformats were then acquired. For radiation dose reduction, the following was used: automated exposure control, adjustment of mA and/or kV according to patient size. COMPARISON: CT chest angiogram 02/03/2024 FINDINGS: Image quality: Excellent. VESSELS: Lower thorax: Moderate type III paraesophageal hernia (4/33). Mild cardiomegaly. Peritoneum: No pneumoperitoneum or ascites. Bones: Subacute, healing, left 3rd-6th anterior rib fractures. Liver: Normal in size and contour. Gallbladder: No wall thickening, stones, or pericholecystic edema. Biliary tree: No intrahepatic or extrahepatic biliary duct dilatation. Pancreas: No acute abnormality. Spleen: Normal in size. Kidneys: Symmetric enhancement without hydronephrosis or obstructive urolithiasis. Adrenals: No nodularity. Bladder: No abnormal wall thickening. : No acute abnormality. Stomach: No focal masses or abnormal distension. Bowel: Normal bowel wall diameter without obstruction. Appendix within normal limits (15/177). Scattered colonic diverticulosis. Lymph Nodes: No retroperitoneal, mesenteric, or inguinal lymphadenopathy. Vascular: Hypodensity of the blood pool, which can be seen with anemia. No abdominal aortic intramural hematoma, aneurysm, or dissection. Celiac: patent Superior mesenteric: patent Inferior mesenteric: patent Renal: patent Common iliac: patent External iliac: patent Internal iliac arteries: patent Main portal vein: no large filling defect Superior mesenteric vein: no large filling defect Soft tissues: No acute abnormality. IMPRESSION: 1.No CT evidence of an acute gastrointestinal bleeding source. 2.Moderate type III paraesophageal hernia. 3.Subacute, healing left 3rd-6th anterior rib fractures. Reviewed by: Perez Singh MD on 03/17/2024 10:45 AM PST Impression/Plan Problem List (1) Anemia: Plan: 43yoM with severe anemia and large bilateral PEs, admitted for upper and lower endoscopy on heparin window as it is too soon for him to hold his DOAC x 48hrs for procedure. Did have severe esophagitis in Oct 2023 and has started PPI with symptomatic improvement, however active bleeding was not seen on EGD. Has never had Colonoscopy and denies blood in stool. Is now on DOAC for PE. Found to have large paraesophageal hernia associated with TAIWO, esophagitis (improving) and rashid's ulcer (healing). No active bleeding today but quite possibly the source of his anemia. Colonoscopy with 3 sigmoid polyps but without any bleeding. - May resume regular diet - resume heparin gtt and continue until evening dose of xarelto, then he may DC home this evening. - continue PPI, carafate that he is on at home - follow up with Dr. Henry for anemia/PE - follow up with me for discussion of paraesophageal hernia (my office will call to schedule) - follow up endoscopic biopsies (my office will call with results) - SW consult as patient states his insurance is running out the end of this month due to being out of work with these acute health issues. He may be starting a new job. Carolin Wong DO, FACS General Surgeon, [facility] Qualifiers: Anemia type: unspecified type Qualified Code(s): D64.9 - Anemia, unspecified (2) Paraesophageal hernia: (3) Rashid ulcer: (4) Esophagitis determined by endoscopy: (5) GERD (gastroesophageal reflux disease): Qualifiers: Esophagitis presence: esophagitis presence not specified Qualified Code(s): K21.9 - Gastro-esophageal reflux disease without esophagitis (6) Pulmonary embolism: Qualifiers: Pulmonary embolism type: unspecified Chronicity: acute Acute cor pulmonale presence: without acute cor pulmonale Qualified Code(s): I26.99 - Other pulmonary embolism without acute cor pulmonale (7) History of colon polyps:
--- NOTE | 2024-03-18 12:53 | ANESTHESIA POST OP EVALUATION ---
Anesthesia Post Eval Post Anesthesia Eval Vitals: Last Vital Signs Temp 37.0 C 03/18/24 12:15 Pulse 82 03/18/24 12:35 Resp 16 03/18/24 12:35 BP 139/75 H 03/18/24 12:35 Pulse Ox 100 03/18/24 12:35 CV Function Including HR & BP: Stable Pain Control: Satisfactory Nausea & Vomiting: Negative Mental Status: Baseline Respiratory Status: Airway Patent Hydration Status: Satisfactory Anesthesia Complications: None
[2024-03-18 15:29] VITALS: BP 134/79; TEMP 97.9; O2SAT 96
[2024-03-18] MEDS: ACETAMINOPHEN 325 MG TABLET PO PRN (16:09)
--- NOTE | 2024-03-18 16:59 | Discharge Summary ---
"Discharge Summary Admit Date: 03/16/24 Discharge Date: 03/18/24 Discharging Provider: Ramona Herndon PA-C Primary Care Provider: DANIELA Clark Code Status: Attempt Resuscitation DIAGNOSES Discharge Diagnoses with Status of Each Condition: Anemia: Ongoing. Being treated by hematology here. Gets periodic iron infusions also on home iron History of DVT with PE, currently stable on Pradaxa therapy without symptoms HPI History of Present Illness: Patient had a PE related syncopal event secondary to hospitalization for DVT in the L leg 02/02/25. He was placed on DOAC after discharge. He states no shortness of breath, no dyspnea with exertion, no recurrence of lower extremity pain, denies any noticeable bleeding, no dark stools or bright red blood per rectum, no coffee ground emesis or hemoptysis. He denies any chest pain, denies abdominal pain, denies sensory or neuro deficits. He is a regular patient and the [facility] clinic for iron infusion was told by MD Wong during a clinic visit that he was too high risk to have EGD and colonoscopy to remain on DOAC and required a herparin drip, additionally he was told that he needed to report to inpatient in order to have a transfusion. CONSULTS | PROCEDURES Consultations: General surgery Procedures: upper and lower endoscopy- with lower polypectomy, and upper with improving esophagitis (continue PPI), and paraesohageal hernia noted. HOSPITAL COURSE Hospital Course: (1) Anemia: Symptomatic anemia, status post cardiac arrest in January 2024 related to DVT left lower extremity with pulmonary embolus. He has been on a DOAC since discharge. Due to his status, about 6 weeks out from acute episode of PE, he was admitted for heparin gtt and reversal of DOAC then taken for endoscopy. There was no acute bleed. His esophagitis looked better and it was recommended that he continue on his PPI therapy. He also had colonoscopy w polypectomy and followup for this will be pending pathology. There was a large paraesophageal hernia seen and he will be following up with general surgery regarding this. Of note, patient made clear that he is having a pre employment drug screen on date after discharge. he did not receive opiates while here, but did receive benzodiazepines as part of his sedation for endoscopy. He did not meet qualifications for transfusion this admission. He was given one dose of IV Ferrlecit this admit. Qualifiers: Anemia type: unspecified type Qualified Code(s): D64.9 - Anemia, unspecified (2) DVT (deep venous thrombosis): Impression: - Home DOAC dabigatran etexilare replaced with inpatient heparin drip titrated per pharmacy protocols - Heparin gtt was stopped in a timely manner and patient was discharged directly home to take his DOAC on arrival home. He and his mother were given these instructions verbally and in writing. ALLERGIES Allergies Allergy/AdvReac Type Severity Reaction Status Date / Time No Known Drug Allergies Allergy Verified 03/16/24 11:20 MEDICATIONS Ambulatory Orders Medication Instructions Recorded Confirmed dabigatran etexilate 150 mg 150 mg PO BID 03/13/24 03/17/24 capsule (Pradaxa) docusate sodium 100 mg capsule 100 mg PO QDAY #60 caps 03/14/24 03/17/24 ferrous gluconate 324 mg (38 mg 324 mg PO QDAY #30 tabs 03/14/24 03/17/24 iron) tablet pantoprazole 40 mg tablet,delayed 40 mg PO DAILY PM gerd 03/17/24 03/17/24 release (Protonix) PHYSICAL EXAM AT DISCHARGE Physical Exam Other/Comments: General Appearance: positive No acute distress and Alert Eyes Bilateral: positive Normal inspection and PERRL ENT: positive ENT inspection nml Neck: positive Nml inspection Respiratory: positive Chest non-tender, No respiratory distress and Breath sounds nml Cardiovascular: positive Regular rate & rhythm Abdomen: Non-tender Skin: positive Color nml and Warm Neurologic/Psychiatric: positive Oriented x3 LABS 03/18/24 08:58 03/18/24 05:43 FOLLOW UP Follow Up: PCP 7-[address] Henry as instructed Dr Wong as instructed. TIME SPENT Time Spent in Discharge (Minutes): 42 Discharge Plan Discharge Patient Disposition: Home, Self Care Prescriptions: Continued ferrous gluconate 324 mg (38 mg iron) tablet 324 mg PO QDAY Qty: 30 3RF docusate sodium 100 mg capsule 100 mg PO QDAY Qty: 60 3RF pantoprazole [Protonix] 40 mg tablet,delayed release (DR/EC) 40 mg PO DAILY PM Rx Instructions: take 30 min before breakfast on an empty stomach dabigatran etexilate [Pradaxa] 150 mg capsule 150 mg PO BID Discontinued peg 3350-electrolytes [Golytely] 236-22.74-6.74 -5.86 gram recon soln 240 ml PO Q10M Qty: 4000 0RF Rx Instructions: until fecal effluent is clear Diet: Regular Interventions: Discharge Last Done: 03/18/24 17:23 Discharge Checklist - Nursing Last Done: 03/18/24 17:23 Health Concerns: You came into the hospital with anemia. You had to be on a heparin drip because of your recent history of pulmonary embolus. Dr. Wong took you to the operating room and did endoscopy. At the time of the endoscopy she saw esophagitis which looks better as well as an ulcer which looks better than the last time. The medicine you have been taking to help soothe your stomach is working. That means that you should continue on your Protonix taken 30 minutes before breakfast on an empty stomach every morning. You will resume your Pradaxa this evening before you leave the hospital. You should take your doses of Pradaxa about [address] Wong also found several polyps on your colonoscopy. She will make a recommendation to you about when you should have repeat colonoscopy. The recommendation is based on the pathology found from the polyps. . You can resume a regular diet. When you take your drug test for your new job they will need to know that you had this endoscopy. Not so much that you had the endoscopy but that you had anesthesia. You did not get any opiates. You did get benzodiazepines. You can take your discharge paperwork from this hospitalization to your preemployment drug physical. You need to follow-up with Dr. Henry as previously scheduled regarding your anemia. You need to follow-up with Dr. Wong regarding your esophagitis and the paraesophageal hernia that she found today. You will need to call for appointments for both of these doctors. The recommendation is that you not drive until tomorrow. This is because you had anesthesia today. This is because you had anesthesia today.I always recommend that patient's follow-up with her primary care provider about a week after hospitalization. VERY IMPORTANT: TAKE YOUR PRADAXA SOON YOU WALK IN THE DOOR FROM THE HOSPITAL. Your doses should be about 12 hours apart. I will stop the heparin when you leave the hospital. It is important that you be protected due to your pulmonary embolus. Care Plan Goals: Continue taking your Protonix 30 minutes before breakfast every morning Continue taking your iron Pradaxa- as soon as you get home, then every 12 hours thereafter. Follow-up with Dr. Henry- per the time frame you have been given. Follow-up with Dr. Wong. Her office will call you. Followup with [facility]IST[facility]- within a week. Print Language: Tuvaluan Patient Instructions: Surgery Anesthesia After Follow-up Care: Jose D Troncoso FNP [Provider Admit Priv/Credential] - Mimi Henry MD [Provider Admit Priv/Credential] - Carolin Wong DO [Provider Admit Priv/Credential] -"
== END 2024-03-18 17:20 | disposition home or self-care (01) ==
LOC: MS2
PROVIDERS: ADMIT Nurse Practitioner Acute Care; ATTEND Nurse Practitioner Acute Care
DX: Z79.01 Long term (current) use of anticoagulants; K64.4 Residual hemorrhoidal skin tags; K22.89 Other specified disease of esophagus; I82.422 Acute embolism and thrombosis of left iliac vein; K31.7 Polyp of stomach and duodenum; Z86.74 Personal history of sudden cardiac arrest; I26.99 Other pulmonary embolism without acute cor pulmonale; S22.42XD Multiple fractures of ribs, left side, subsequent encounter for fracture with routine healing; D50.9 Iron deficiency anemia, unspecified; K21.00 Gastro-esophageal reflux disease with esophagitis, without bleeding; K25.9 Gastric ulcer, unspecified as acute or chronic, without hemorrhage or perforation; Z86.16 Personal history of COVID-19; K44.9 Diaphragmatic hernia without obstruction or gangrene; K91.61 Intraoperative hemorrhage and hematoma of a digestive system organ or structure complicating a digestive system procedure; K63.5 Polyp of colon; K29.50 Unspecified chronic gastritis without bleeding; D12.5 Benign neoplasm of sigmoid colon